=== PATIENT | female | born 1955 | race Two or more races ===

== ENCOUNTER → 2016-12-09 | Outpatient (CLI) | payer OTHER ==
--- NOTE | 2016-12-09 15:53 | MR ---
EXAMINATION TYPE: MR lumbar spine wo con DATE OF EXAM: 12/09/2016 3:19 PM COMPARISON: NONE HISTORY: Reduced Scan parameters, Pt in much pain and moving Best Poss. TECHNIQUE: Multiplanar, multisequence images of the lumbar spine were acquired. T12-L1: Moderate disc desiccation identified. Posterocentral moderate disc bulge effaces the ventral thecal sac. Small herniation difficult to exclude. No central stenosis identified. Mild bilateral for aminal encroachment. L1-L2: Normal disc appearance without desiccation. No herniation, protrusion or disc bulging. No ca nal stenosis is present. Foramina are patent bilaterally. L2-L3: Moderate disc desiccation identified. Posterocentral moderate disc bulge effaces the ventral t hecal sac. Small herniation difficult to exclude. No central stenosis identified. Mild bilateral fora jack encroachment. L3-L4: Moderate disc desiccation identified. Posterocentral moderate disc bulge effaces the ventral t hecal sac. Small herniation difficult to exclude. No central stenosis identified. Mild bilateral fora jack encroachment. L4-L5: Severe disc desiccation identified with vacuum disc. Posterocentral moderate disc bulge efface s the ventral thecal sac. Small herniation difficult to exclude. No central stenosis identified. Mild bilateral foraminal encroachment. L5-S1: Normal disc appearance without desiccation. No herniation, protrusion or disc bulging. No ca nal stenosis is present. Foramina are patent bilaterally. Lumbar segments are intact. No paraspinal masses are identified. Conus medullaris has a normal appe arance. IMPRESSION: 1. Multilevel degenerative disc disease with disc bulging as discussed. Small herniations difficult t o exclude. Bilateral facet joint arthropathy and left foraminal encroachment as discussed.
== END | disposition home or self-care (01) ==
LOC: RADMRIMAIN 14:35
PROVIDERS: ATTEND Family Medicine
DX: M51.26 Other intervertebral disc displacement, lumbar region (principal); M51.36 Other intervertebral disc degeneration, lumbar region; M46.96 Unspecified inflammatory spondylopathy, lumbar region
CPT/HCPCS: 72148

== ENCOUNTER 2017-01-09 18:56 | Inpatient (IN) | payer OTHER ==
[2017-01-09 20:17] LABS: Basophils % (A) 1 %; CHCM 34.6; Eosinophils # (A) 0.1 k/uL (0-0.7); Eosinophils % (A) 2 %; HDW 2.55; Luc # (Auto) 0.14; Luc % (Auto) 3; Lymphocytes # (A) 1.5 k/uL (1.0-4.8); Lymphocytes % (A) 28 %; MCH 31.9 pg (25.0-35.0); MCHC 33.3 g/dL (31.0-37.0); MCV 95.8 fL (80.0-100.0); Mean Platelet Volume 8.1; Monocytes # (A) 0.3 k/uL (0-1.0); Monocytes % (A) 6 %; Neutrophils # (A) 3.4 k/uL (1.3-7.7); Neutrophils % (A) 62 %; RBC 4.69 m/uL (3.80-5.40); RDW 12.4 % (11.5-15.5); WBC 5.5 k/uL (3.8-10.6); WBC (Perox) 5.54
[2017-01-09 20:27] LABS: ALT 20 U/L (9-52); AST 28 U/L (14-36); Alkaline Phosphatase 78 U/L (38-126); Anion Gap 14 mmol/L; Blood Urea Nitrogen 19 mg/dL (7-17); Calcium 9.8 mg/dL (8.4-10.2); Carbon Dioxide 26 mmol/L (22-30); Chloride 104 mmol/L (98-107); Glucose 95 mg/dL (74-99); Non-African American GFR(MDRD) >60 (>60 ml/min/1.73 sqM); Sodium 144 mmol/L (137-145); Total Bilirubin 0.6 mg/dL (0.2-1.3); Total Protein 7.9 g/dL (6.3-8.2)
[2017-01-09] MEDS ORDERED: ASPIRIN 81 MG CHEW PO STA (20:33)
[2017-01-09] MEDS ORDERED: NITROGLYCERIN OINT 1 INCH/GM PACKET TOPICAL STA (20:33)
[2017-01-09 20:43] LABS: Creatine Kinase 60 U/L (30-135)
[2017-01-09 20:54] LABS: Creatine Kinase MB 0.3 ng/mL (0.0-2.4); Troponin I <0.012 ng/mL (0.000-0.034)
--- NOTE | 2017-01-09 20:56 | XR ---
EXAMINATION TYPE: XR chest 2V DATE OF EXAM: 01/09/2017 8:27 PM COMPARISON: 05/08/2014 HISTORY: Chest pain TECHNIQUE: Frontal and lateral views of the chest are obtained. FINDINGS: Heart and mediastinum are normal. Lungs are clear. Diaphragm is normal. There are no hilar masses. There are chest leads. Bony thorax is intact. IMPRESSION: Normal chest. No change.
[2017-01-09] MEDS ORDERED: MORPHINE SULFATE 4 MG/ML SYRINGE IV STA (21:17)
[2017-01-09] MEDS ORDERED: HEPARIN SODIUM,PORCINE 5,000 UNIT/ML 1 ML VIAL IV ONE (21:27)
[2017-01-09] MEDS ORDERED: MORPHINE SULFATE 4 MG/ML SYRINGE IV PRN (21:27)
[2017-01-09] MEDS ORDERED: HEPARIN SODIUM,PORCINE 5,000 UNIT/ML 1 ML VIAL IV PRN (21:27)
[2017-01-09] MEDS ORDERED: NITROGLYCERIN SL TABS 0.4 MG TAB SUBLINGUAL PRN (21:27)
--- NOTE | 2017-01-09 21:27 | ED ---
Chest Pain HPI - General Chief Complaint: Chest Pain Stated Complaint: Chest pain x 2 days Time Seen by Provider: 01/09/17 20:24 Source: patient Mode of arrival: ambulatory Limitations: no limitations - History of Present Illness Initial Comments: This 61-year-old white female presents with a complaint of some chest pain which is described as a pressure to her bilateral chest. It radiates posteriorly, down both arms, and into her neck. She did have some palpitations and shortness of breath. His been intermittent in nature. Onset occurred last evening. She denies any prior similar symptoms. She denies any previous history of cardiac disease or pulmonary disease. Her last stress test was approximately 3 years ago but she's never had a heart catheterization. She denies any history of pulmonary embolism or DVT. She does not have any leg pain or swelling. No other complaints or modifying factors. - Related Data Home Medications Medication Instructions Recorded Confirmed Celecoxib [CeleBREX] 200 mg PO HS 02/24/16 01/09/17 Cholecalciferol [Vitamin D3] 5,000 unit PO DAILY 01/09/17 01/09/17 Cyanocobalamin [Vitamin B-12] 2,500 mcg PO DAILY 01/09/17 01/09/17 Gabapentin [Neurontin] 100 mg PO TID 01/09/17 01/09/17 Levothyroxine Sodium [Synthroid] 88 mcg PO DAILY 01/09/17 01/09/17 Methocarbamol [Robaxin] 500 mg PO TID PRN 01/09/17 01/09/17 Multivitamins, Thera [Multivitamin] 1 tab PO DAILY 01/09/17 01/09/17 tiZANidine HCL [Zanaflex] 4 mg PO Q8H PRN 01/09/17 01/09/17 Allergies Allergy/AdvReac Type Severity Reaction Status Date / Time No Known Allergies Allergy Verified 01/09/17 19:44 Review of Systems ROS Statement: Those systems with pertinent positive or pertinent negative responses have been documented in the HPI. ROS Other: All systems not noted in ROS Statement are negative. Past Medical History Past Medical History: GERD/Reflux, Hearing Disorder / Deafness, Osteoarthritis ( OA), Thyroid Disorder Additional Past Medical History / Comment(s): barretts disease,polyps found during colonoscopy, [place] in right ear History of Any Multi-Drug Resistant Organisms: None Reported Past Surgical History: Bariatric Surgery, Cholecystectomy Additional Past Surgical History / Comment(s): lasik eye surgery and breast implants, lazarus-en-y gastric bypass of 03/03/2014, EGD w/dilatation on 03/28/14 Past Anesthesia/Blood Transfusion Reactions: No Reported Reaction Past Psychological History: No Psychological Hx Reported Smoking Status: Never smoker Past Alcohol Use History: None Reported Past Drug Use History: None Reported General Exam - General Exam Comments Initial Comments: GENERAL: The patient is well nourished and well hydrated. VITAL SIGNS: Heart rate, blood pressure, respiratory rate reviewed as recorded in nurse's notes. EYES: Pupils are round and reactive. Extraocular movements are intact. No conjunctival / lid redness or swelling. ENT: No external evidence of injury, swelling, or ecchymosis. Airway is patent. Throat is clear. NECK: Nontender. No swelling or evidence of injury. No subcutaneous emphysema. Trachea is midline. No thyroid mass. HEART: Regular rate and rhythm. Good peripheral pulses. LUNGS/CHEST: Breath sounds clear and equal bilaterally. No rales, rhonchi, or wheezes. No ecchymosis, subcutaneous emphysema, or tenderness. ABDOMEN: Abdomen soft without tenderness. No palpable masses or organomegaly. No peritoneal signs. No abdominal wall swelling or ecchymosis. EXTREMITIES: No extremity tenderness. Normal muscle tone and function. No thoracolumbar tenderness. NEUROLOGIC: Sensation is grossly intact. Cranial nerve exam reveals face is symmetrical, tongue is midline, speech is clear. SKIN: No abrasions or ecchymosis is noted. No induration or masses noted. PSYCHIATRIC: Alert and oriented. Appropriate behavior and judgment. Limitations: no limitations Course Vital Signs 01/09/17 01/09/17 19:06 20:49 Temperature 99.0 F Pulse Rate 75 62 Respiratory 18 16 Rate Blood Pressure 148/77 159/88 O2 Sat by Pulse 96 98 Oximetry Chest Pain MDM - MDM The patient was seen and examined. All diagnostics were reviewed. The EKG shows a normal sinus rhythm at a rate of 71. There is left ventricular hypertrophy noted. There is T-wave abnormality in leads 3 and aVF. There is some flattened T waves in the lateral leads. The [place] interval is 1:30, QS duration is 84, and QTC intervals 419. The x-ray of the chest does not show any acute abnormalities. The cardiac profile laboratories all essentially within normal limits. She received aspirin as well as Nitropaste and morphine and does not appear to be in any distress on recheck. It is felt as though she benefit from admission to the hospital and further treatment to rule out the possibility of coronary syndrome. She is agreeable. Case is discussed with Dr. Blancas and he is agreeable with admission. Disposition Clinical Impression: Unstable angina pectoris, Chest pain, Hypertension Disposition: ADMITTED IP TO THIS [facility] Condition: Fair Time of Disposition: 21: Decision Date: 01/09/17 Decision Time: 21:27
[2017-01-09] MEDS ORDERED: METHOCARBAMOL 500 MG TAB PO PRN (21:30)
[2017-01-09] MEDS ORDERED: tiZANidine 4 MG TAB PO PRN (21:30)
[2017-01-09] MEDS ORDERED: HEPARIN SODIUM,PORCINE/D5W PMX 25,000 UNIT in DEXTROSE/WATER 1 500ML.BAG IV SCH (21:30)
[2017-01-09] MEDS ORDERED: ONDANSETRON 4 MG/2 ML VIAL IVP STA (22:08)
[2017-01-09] MEDS ORDERED: PANTOPRAZOLE 40 MG/10 ML VIAL IVP STA (22:09)
[2017-01-09] MEDS ORDERED: SODIUM CHLORIDE 0.9% 1,000 ML IV STA (22:22)
[2017-01-09] MEDS ORDERED: RX INFO: IV CONTRAST WAS GIVEN 1 EACH MISC MISCELLANE PRN (22:23)
--- NOTE | 2017-01-09 23:05 | CT ---
EXAMINATION TYPE: CT abdomen pelvis w con DATE OF EXAM: 01/09/2017 10:54 PM COMPARISON: 01/13/2012 HISTORY: Abdominal pain CT DLP: mGycm Automated exposure control for dose reduction was used. TECHNIQUE: Helical acquisition of images was performed from the lung bases through the pelvis. CONTRAST: Omnipaque 100 mL. FINDINGS: There is mild subsegmental atelectasis at the lung bases. There is no pleural effusion. There is a 1 cm cyst in the posterior right lobe of the liver. There are clips from cholecystectomy. Bile ducts ar e not dilated. Spleen pancreas appear normal. There is no adrenal mass. Kidneys show satisfactory con trast opacification. There is no hydronephrosis. There is no sign of a bowel obstruction. I see no in testinal wall thickening. Latter distends smoothly. There is no pelvic mass. There is no free fluid i n the pelvis. Appendix appears normal. There is a mild lumbar dextroscoliosis. There are surgical cli ps apparently from bariatric surgery at the gastric fundus. There are bilateral breast implants. IMPRESSION: MILD SUBSEGMENTAL ATELECTASIS AT THE LUNG BASES. BARIATRIC SURGERY. NO SIGN OF ACUTE ABDOMEN AND PELV IS. NORMAL APPENDIX.
--- NOTE | 2017-01-09 23:08 | CT ---
EXAMINATION TYPE: CT angio chest DATE OF EXAM: 01/09/2017 10:53 PM COMPARISON: NONE HISTORY: Abdominal pain and chest pain CT DLP: mGycm Automated exposure control for dose reduction was used. CONTRAST: Multiple axial sections were obtained from the thoracic inlet to the diaphragm with intravenous contr ast. Contrast was Omnipaque 100 mL. There are 3-D post processed images. FINDINGS: There is mild subsegmental atelectasis at the lung bases. There is no pulmonary consolidation. There is no evidence of a pulmonary mass. I see no filling defects in the pulmonary arteries. There are no hilar masses. There is no mediastina l adenopathy. There is no evidence of thoracic aortic aneurysm or dissection. Heart size is normal. T here is no pericardial effusion. Bony thorax appears intact. There are bilateral breast implants. IMPRESSION: NO EVIDENCE OF PULMONARY EMBOLISM. MILD SUBSEGMENTAL ATELECTASIS AT THE LUNG BASES.
[2017-01-10 00:39] VITALS: BMI 29.1
[2017-01-10] MEDS: METOPROLOL TARTRATE 25 MG TAB PO SCH ×3 (01:03→17:25)
[2017-01-10] MEDS: NITROGLYCERIN OINT 1 INCH/GM PACKET TOPICAL SCH ×4 (01:03→16:35)
[2017-01-10] MEDS: GABAPENTIN 100 MG CAP PO SCH ×4 (01:03→21:13)
[2017-01-10 02:08] LABS: Creatine Kinase 45 U/L (30-135)
[2017-01-10 02:20] LABS: Creatine Kinase MB <0.2 ng/mL (0.0-2.4); Troponin I <0.012 ng/mL (0.000-0.034)
[2017-01-10] MEDS: LEVOTHYROXINE 88 MCG TAB PO SCH (06:08)
[2017-01-10 07:56] LABS: Cholesterol 123 mg/dL (<200); HDL Cholesterol 48 mg/dL (40-60); Triglycerides 83 mg/dL (<150)
[2017-01-10 08:26] LABS: Creatine Kinase 42 U/L (30-135)
[2017-01-10] MEDS: CYANOCOBALAMIN 500 MCG TAB PO SCH (08:27)
[2017-01-10 08:38] LABS: Creatine Kinase MB <0.2 ng/mL (0.0-2.4); Troponin I <0.012 ng/mL (0.000-0.034)
[2017-01-10] MEDS: ASPIRIN 325 MG TAB PO SCH (09:04)
[2017-01-10] MEDS: MULTIVITAMINS, THERA 1 EACH TAB PO SCH (09:08)
[2017-01-10] MEDS: CHOLECALCIFEROL 1,000 UNIT TAB PO SCH (09:08)
--- NOTE | 2017-01-10 09:18 | P.CRDCN ---
History of Present Illness Consult date: 01/10/17 Requesting physician: Garrick Blancas Consult reason: chest pain Chief complaint: Chest pain History of present illness: This is a pleasant 61-year-old female with no documented history of hypertension or diabetes, nonsmoker, positive hyperlipidemia, strong family history of premature coronary artery disease, hypothyroidism, prior bariatric surgery, who presents to the hospital with symptoms of chest pain. According to the patient a couple nights ago, she woke up with severe pressure across the entire chest, through to her back, and down both arms. In the morning, the symptoms of chest discomfort had resolved but patient states throughout that day she was intermittently short of breath when she exerted herself. She also states that at the time of the chest discomfort she was quite diaphoretic and had some mild nausea. Patient denies any prior cardiac history and herself, but states she has a strong family history of premature coronary artery disease. She did have a stress test in 2013 prior to her bariatric surgery which according to her was reported to be normal. EKG on admission here showed a normal sinus rhythm with nonspecific ST-T wave changes in the inferior lateral leads. Repeat EKG showed a sinus bradycardia with no acute changes. EKG performed this morning showed normal sinus rhythm showed a normal sinus rhythm with inferior lateral ST-T wave changes. Laboratory data was reviewed, troponins negative 3, potassium 4.0, BUN 19, creatinine 0.7. Cholesterol 123, LDL 58, HDL 48, triglycerides 83. CBC normal. The pressure on arrival here 148 /77 with a heart rate in the 70s 96% on room air. Blood pressure this morning 112/60. At the time of my examination this morning, patient is currently chest pain-free. She does not currently on IV heparin, patient apparently had a spell of diaphoresis, nausea, and hypotension in the emergency room after being administered Nitropaste and heparin, it was felt that it may be secondary to heparin and this was discontinued. Past Medical History Past Medical History: GERD/Reflux, Hearing Disorder / Deafness, Osteoarthritis ( OA), Thyroid Disorder Additional Past Medical History / Comment(s): barretts disease,polyps found during colonoscopy, [place] in right ear History of Any Multi-Drug Resistant Organisms: None Reported Past Surgical History: Bariatric Surgery, Cholecystectomy Additional Past Surgical History / Comment(s): lasik eye surgery and breast implants, lazarus-en-y gastric bypass of 03/03/2014, EGD w/dilatation on 03/28/14 Past Anesthesia/Blood Transfusion Reactions: No Reported Reaction Past Psychological History: No Psychological Hx Reported Smoking Status: Former smoker Past Alcohol Use History: None Reported Past Drug Use History: None Reported - Past Family History Father Family Medical History: Cancer, Prostate Disorder Additional Family Medical History / Comment(s): TB Mother Family Medical History: Cancer, Diabetes Mellitus Medications and Allergies Home Medications Medication Instructions Recorded Confirmed Type Celecoxib [CeleBREX] 200 mg PO HS 02/24/16 01/09/17 History Cholecalciferol [Vitamin D3] 5,000 unit PO DAILY 01/09/17 01/09/17 History Cyanocobalamin [Vitamin B-12] 2,500 mcg PO DAILY 01/09/17 01/09/17 History Gabapentin [Neurontin] 100 mg PO TID 01/09/17 01/09/17 History Levothyroxine Sodium [Synthroid] 88 mcg PO DAILY 01/09/17 01/09/17 History Methocarbamol [Robaxin] 500 mg PO TID PRN 01/09/17 01/09/17 History Multivitamins, Thera [Multivitamin] 1 tab PO DAILY 01/09/17 01/09/17 History tiZANidine HCL [Zanaflex] 4 mg PO Q8H PRN 01/09/17 01/09/17 History Allergies Allergy/AdvReac Type Severity Reaction Status Date / Time No Known Allergies Allergy Verified 01/09/17 19:44 Physical Exam Vitals: Vital Signs Temp Pulse Pulse Pulse Resp BP BP 01/10/17 04:00 98.5 F 60 16 112/67 01/10/17 01:40 98.1 F 74 74 18 134/83 01/10/17 00:08 97.1 F L 57 L 18 133/73 01/09/17 23:30 66 18 135/69 01/09/17 22:30 48 L 18 118/72 01/09/17 22:25 48 L 18 117/63 01/09/17 22:17 45 L 16 92/57 01/09/17 21:53 97.8 F 64 16 147/88 Pulse Ox 01/10/17 04:00 95 01/10/17 01:40 100 01/10/17 00:08 100 01/09/17 23:30 100 01/09/17 22:30 98 01/09/17 22:25 97 01/09/17 22:17 97 01/09/17 21:53 98 Intake and Output 01/09/17 01/10/17 01/10/17 22:59 06:59 14:59 Intake Total 1000 Balance 1000 Intake: Intake, IV Titration 1000 Amount Sodium Chloride 0.9% 1, 1000 000 ml @ 999 mls/hr IV . Q1H1M STA Rx#:[id number] Other: Voiding Method Toilet Weight 57.7 kg PHYSICAL EXAMINATION: HEENT: Head is atraumatic, normocephalic. Pupils equal, round. Neck is supple. There is no elevated jugular venous pressure. HEART EXAMINATION: Heart S1, S2 normal. No murmur or gallop heard. CHEST EXAMINATION: Lungs are clear to auscultation and precussion. No chest wall tenderness is noted on palpation or with deep breathing. ABDOMEN: Soft, nontender. Bowel sounds are heard. No organomegaly noted. EXTREMITIES: 2+ peripheral pulses with no evidence of peripheral edema and no calf tenderness noted. NEUROLOGIC patient is awake, alert and oriented -3. . Results 01/09/17 19:38 01/09/17 19:38 Cardiac Enzymes 01/10/17 01/10/17 Range/Units 01:20 07:08 CK-MB (CK-2) <0.2 <0.2 (0.0-2.4) ng/mL Troponin I <0.012 <0.012 (0.000-0.034) ng/mL Lipids 01/10/17 Range/Units 07:08 Triglycerides 83 (<150) mg/dL Cholesterol 123 (<200) mg/dL HDL Cholesterol 48 (40-60) mg/dL Current Medications Generic Name Dose Route Start Last Admin Trade Name Freq PRN Reason Stop Dose Admin Aspirin 325 mg 01/10/17 09:00 01/10/17 09:04 Aspirin PO 325 mg DAILY [facility] Administration Cholecalciferol 5,000 unit 01/10/17 09:00 01/10/17 09:08 Vitamin D3 PO Not Given DAILY [facility] Cyanocobalamin 2,500 mcg 01/10/17 07:30 01/10/17 08:27 Vitamin B-12 PO Not Given W/BRKFST [facility] Gabapentin 100 mg 01/09/17 22:00 01/10/17 09:04 Neurontin PO 100 mg TID [facility] Administration Levothyroxine Sodium 88 mcg 01/10/17 06:30 01/10/17 06:08 Synthroid PO 88 mcg 0630 PRUD[facility] Administration Meloxicam 7.5 mg 01/10/17 21:00 Mobic PO HS [facility] Methocarbamol 500 mg 01/09/17 21:30 Robaxin PO TID PRN Pain Metoprolol Tartrate 25 mg 01/09/17 21:30 01/10/17 09:04 Lopressor PO 25 mg BID PRUD[facility] Administration Miscellaneous Information 1 each 01/09/17 22:23 Rx Info: Iv Contrast Was Given MISCELLANE 01/11/17 22:24 DAILY PRN Per Protocol Multivitamins 1 each 01/10/17 09:00 01/10/17 09:08 Theragran PO Not Given DAILY [facility] Nitroglycerin 1 inch 01/10/17 00:00 01/10/17 06:13 Nitro-Bid Oint TOPICAL Not Given Q6HR [facility] Nitroglycerin 0.4 mg 01/09/17 21:27 Nitrostat SUBLINGUAL Q5M PRN Chest Pain Tizanidine HCl 4 mg 01/09/17 21:30 Zanaflex PO Q8H PRN Pain Intake and Output 01/09/17 01/10/17 01/10/17 22:59 06:59 14:59 Intake Total 1000 Balance 1000 Intake: Intake, IV Titration 1000 Amount Sodium Chloride 0.9% 1, 1000 000 ml @ 999 mls/hr IV . Q1H1M STA Rx#:[id number] Other: Voiding Method Toilet Weight 57.7 kg EKG Interpretations (text) EKG shows normal sinus rhythm with inferior lateral ST-T wave changes Assessment and Plan Plan: Assessment and plan #1 symptoms of midsternal chest pressure and heaviness with radiation to the back and down bilateral arms, associated shortness of breath diaphoresis and nausea. Suggestive of unstable angina. EKG shows normal sinus rhythm with inferior lateral ST-T wave changes troponins 3 have been negative. #2 strong family history of premature coronary artery disease #3 history of hyperlipidemia #4 no diabetes, no high blood pressure. #5 prior bariatric surgery #6 hypothyroidism Plan Will obtain an echocardiogram with Doppler study. Patient has been advised that she may need to undergo further testing to rule out underlying coronary artery disease. Further recommendations to follow. DNP note has been reviewed, I agree with a documented findings and plan of care. Patient was seen and examined.
[2017-01-10] MEDS ORDERED: ASPIRIN 325 MG TAB PO STA (10:11)
[2017-01-10] MEDS ORDERED: ATORVASTATIN 80 MG TAB PO STA (10:11)
[2017-01-10] MEDS ORDERED: NITROGLYCERIN SL TABS 0.4 MG TAB SUBLINGUAL PRN (10:11)
[2017-01-10] MEDS ORDERED: SODIUM CHLORIDE 0.9% 1,000 ML in EMPTY BAG 1 BAG IV ONE (10:11)
[2017-01-10] MEDS ORDERED: ALPRAZolam 0.5 MG TAB PO PRN (10:11)
[2017-01-10] MEDS ORDERED: ALPRAZolam 0.25 MG TAB PO PRN (10:11)
--- NOTE | 2017-01-10 10:14 | ECHOF ---
Referral Reason:cp MEASUREMENTS -------- HEIGHT: 147.3 cm WEIGHT: 57.6 kg BP: 112/67 RVIDd: 2.8 cm (< 3.3) IVSd: 1.0 cm (0.6 - 1.1) LVIDd: 3.4 cm (3.9 - 5.3) LVPWd: 1.0 cm (0.6 - 1.1) IVSs: 1.5 cm LVIDs: 2.4 cm LVPWs: 1.5 cm LA Diam: 3.4 cm (2.7 - 3.8) LAESV Index (A-L): 22.50 ml/m Ao Diam: 2.9 cm (2.0 - 3.7) AV Cusp: 2.1 cm (1.5 - 2.6) MV EXCURSION: 12.690 mm (> 18.000) MV EF SLOPE: 83 mm/s (70 - 150) EPSS: 0.4 cm MV E Sidney: 0.96 m/s MV DecT: 206 ms MV A [place]: 0.96 m/s MV E/A Ratio: 1.00 RAP: 5.00 mmHg RVSP: 29.52 mmHg FINDINGS -------- Sinus rhythm. This was a technically good study. The left ventricular size is normal. Left ventricular wall thickness is normal. Overall left ventricular systolic function is normal with, an EF between 60 - 65 %. The right ventricle is normal in size. Normal LA size by volume 22+/-6 ml/m2. The right atrium is normal in size. The aortic valve is trileaflet and appears structurally normal. There is trace mitral regurgitation. Mild tricuspid regurgitation present. Right ventricular systolic pressure is normal at < 35 mmHg. Trace/mild (physiologic) pulmonic regurgitation. The aortic root size is normal. Normal inferior vena cava with normal inspiratory collapse consistent with estimated right atrial pressure of 5 mmHg. There is no pericardial effusion. CONCLUSIONS -------- 1. Sinus rhythm. 2. Mild tricuspid regurgitation present. 3. Right ventricular systolic pressure is normal at < 35 mmHg. 4. Trace/mild (physiologic) pulmonic regurgitation. 5. The aortic root size is normal. 6. Normal inferior vena cava with normal inspiratory collapse consistent with estimated right atrial pressure of 5 mmHg. 7. There is no pericardial effusion. 8. This was a technically good study. 9. The left ventricular size is normal. 10. Left ventricular wall thickness is normal. 11. Overall left ventricular systolic function is normal with, an EF between 60 - 65 %. 12. The right ventricle is normal in size. 13. Normal LA size by volume 22+/-6 ml/m2. 14. The aortic valve is trileaflet and appears structurally normal. 15. There is trace mitral regurgitation. PIPELINE DISPATCHER: Rita Berrios RDCS
--- NOTE | 2017-01-10 13:50 | P.HPIM ---
History of Present Illness H&P Date: 01/10/17 Chief Complaint: Chest pain This is a 61-year-old female. Her primary care physician is Dr. Jon. She has a past mental history for gastroesophageal reflux disease, hearing disorder, chronic back pain with osteoarthritis of the back, hyperlipidemia, hypothyroidism, Quiles's esophagus, gastrojejunal stricture status post balloon dilatation, morbid obesity status post laparoscopic Karissa-en- Y gastric bypass in 2013 with good results. She states that yesterday she had chest pain that was going across her chest and into her back and also went down both arms and cause both arms to be numb and she was not able to lift her arms. The pain gradually went away and she went back to sleep. Later in the day she had palpitations with lightheadedness and feeling tired. The chest pain returned again in the evening and she came into [facility] emergency center for evaluation. Troponin 3 have been negative. Triglycerides 83, cholesterol 123, LDL 58 and HDL 48. Patient was started on heparin drip which was subsequently discontinued and admitted to the selective care unit. She has been seen by cardiology with plan for heart catheterization tomorrow. CTA of the chest showed no evidence of pulmonary embolism. Mild subsegmental atelectasis at the lung bases. CAT scan of the abdomen and pelvis with contrast reveals mild subsegmental atelectasis at the lung bases. Bariatric surgery. No sign of acute abdomen or pelvis. Normal appendix. Echocardiogram reveals EF 60-65% with mild tricuspid regurgitation, trace mitral regurgitation. Review of Systems All systems: negative Constitutional: Reports fatigue, Reports weakness, Denies chills, Denies fever Eyes: denies blurred vision, denies pain Ears, nose, mouth and throat: Denies headache, Denies sore throat Cardiovascular: Reports chest pain, Reports lightheadedness, Denies edema, Denies leg edema, Denies shortness of breath, Denies syncope Respiratory: Denies cough, Denies cough with sputum, Denies dyspnea, Denies excessive sputum, Denies hemoptysis, Denies wheezing Gastrointestinal: Denies abdominal pain, Denies diarrhea, Denies nausea, Denies vomiting Genitourinary: Denies dysuria, Denies hematuria Musculoskeletal: Reports low back pain, Denies myalgias Integumentary: Denies pruritus, Denies rash, Denies wounds Neurological: Reports weakness, Denies numbness Psychiatric: Denies anxiety, Denies depression Endocrine: Reports fatigue, Denies weight change Past Medical History Past Medical History: GERD/Reflux, Hearing Disorder / Deafness, Osteoarthritis ( OA), Thyroid Disorder Additional Past Medical History / Comment(s): barretts disease,polyps found during colonoscopy, CABAZON in right ear, gastrojejunal stricture History of Any Multi-Drug Resistant Organisms: None Reported Past Surgical History: Bariatric Surgery, Cholecystectomy Additional Past Surgical History / Comment(s): lasik eye surgery and breast implants, karissa-en-y gastric bypass of 03/03/2014, EGD w/dilatation on 03/28/14 Past Anesthesia/Blood Transfusion Reactions: No Reported Reaction Past Psychological History: No Psychological Hx Reported Smoking Status: Never smoker Past Alcohol Use History: None Reported Additional Past Alcohol Use History / Comment(s): Patient is a lifelong nonsmoker. She denies any medical marijuana, marijuana, street drug use. She lives at home with her . She is worked as a housewife. Past Drug Use History: None Reported - Past Family History Father Family Medical History: Cancer, Prostate Disorder Additional Family Medical History / Comment(s): Father from prostate cancer with history of TB Mother Family Medical History: Cancer, Diabetes Mellitus Additional Family Medical History / Comment(s): Mother from cancer that was through her whole body at the time of diagnosis. Brother(s) Additional Family Medical History / Comment(s): Patient has a total of 16 brothers and sisters. Daughter(s) Additional Family Medical History / Comment(s): Patient has a total of 5 children with no major medical problems. Medications and Allergies Home Medications Medication Instructions Recorded Confirmed Type Celecoxib [CeleBREX] 200 mg PO HS 02/24/16 01/09/17 History Cholecalciferol [Vitamin D3] 5,000 unit PO DAILY 01/09/17 01/09/17 History Cyanocobalamin [Vitamin B-12] 2,500 mcg PO DAILY 01/09/17 01/09/17 History Gabapentin [Neurontin] 100 mg PO TID 01/09/17 01/09/17 History Levothyroxine Sodium [Synthroid] 88 mcg PO DAILY 01/09/17 01/09/17 History Methocarbamol [Robaxin] 500 mg PO TID PRN 01/09/17 01/09/17 History Multivitamins, Thera [Multivitamin] 1 tab PO DAILY 01/09/17 01/09/17 History tiZANidine HCL [Zanaflex] 4 mg PO Q8H PRN 01/09/17 01/09/17 History Allergies Allergy/AdvReac Type Severity Reaction Status Date / Time No Known Allergies Allergy Verified 01/09/17 19:44 Physical Exam Vitals: Vital Signs Temp Pulse Pulse Pulse Resp BP BP 01/10/17 08:00 97.7 F 60 16 112/77 01/10/17 04:00 98.5 F 60 16 112/67 01/10/17 01:40 98.1 F 74 74 18 134/83 01/10/17 00:08 97.1 F L 57 L 18 133/73 01/09/17 23:30 66 18 135/69 01/09/17 22:30 48 L 18 118/72 01/09/17 22:25 48 L 18 117/63 01/09/17 22:17 45 L 16 92/57 01/09/17 21:53 97.8 F 64 16 147/88 Pulse Ox 01/10/17 08:00 92 L 01/10/17 04:00 95 01/10/17 01:40 100 01/10/17 00:08 100 01/09/17 23:30 100 01/09/17 22:30 98 01/09/17 22:25 97 01/09/17 22:17 97 01/09/17 21:53 98 Intake and Output 01/09/17 01/10/17 01/10/17 22:59 06:59 14:59 Intake Total 1000 Balance 1000 Intake: Intake, IV Titration 1000 Amount Sodium Chloride 0.9% 1, 1000 000 ml @ 999 mls/hr IV . Q1H1M STA Rx#:[id number] Other: Voiding Method Toilet Toilet Weight 57.7 kg Gen: This is a 61-year-old female. She is sitting up in bed and appears to be in no acute distress. HEENT: Head is atraumatic, normocephalic. Pupils equal, round. Sclerae is anicteric. NECK: Supple. No JVD. No lymphadenopathy. No thyromegaly. LUNGS: Clear to auscultation. No wheezes or rhonchi. No intercostal retractions. HEART: Regular rate and rhythm. No murmur. No chest wall tenderness. ABDOMEN: Soft. Bowel sounds are present. No masses. No tenderness. EXTREMITIES: No pedal edema. No calf tenderness. Dorsalis pedis +2 bilaterally. NEUROLOGICAL: Patient is awake, alert and oriented x3. Cranial nerves 2 through 12 are grossly intact. Results CBC & Chem 7: 01/09/17 19:38 01/09/17 19:38 Thrombosis Risk Factor Assmnt - DVT/VTE Prophylaxis DVT/VTE Prophylaxis: Pharmacologic Prophylaxis ordered - Choose All That Apply Each Factor Represents 1 point: Age 41-60 years Thrombosis Risk Factor Assessment Total Risk Factor Score: 1 Thrombosis Risk Factor Assessment Level: Low Risk Assessment and Plan Plan: 1. Chest pain with radiation to the back and down bilateral arms with shortness of breath diaphoresis and nausea and numbness to the arms. EKG with normal sinus rhythm and inferior lateral ST-T wave changes. Troponins have been negative. Cardiology consult is appreciated. Echocardiogram as above. Heart catheterization for tomorrow. Patient has been started on Lopressor 25 mg twice daily, aspirin 325 mg daily, nitro ointment and Nitrostat. 2. Hyperlipidemia. This resolved after weight loss. 3. History of morbid obesity status post Karissa-en-Y gastric bypass, stable. 4. Hypothyroidism. Continue levothyroxine. 5. Gastroesophageal reflux disease. Protonix. 6. Deafness right ear, stable. 7. Osteoarthritis of the spine, stable. Continue Zanaflex, Neurontin, multiple back, Robaxin. 8. Vitamin D and vitamin B12 deficiency. Continue supplement. Patient will be admitted to the hospital for a minimum of 2 night stay. Discharge plan: Return home Impression and plan of care have been directed as dictated by the signing physician. Carolee Emerson nurse practitioner acting as scribe for signing physician. Time with Patient: Greater than 30
[2017-01-10 17:13] LABS: Glucose,Whole Blood 85 mg/dL (75-99)
[2017-01-10] MEDS: MELOXICAM 7.5 MG TAB PO SCH (21:13)
[2017-01-11] MEDS: NITROGLYCERIN OINT 1 INCH/GM PACKET TOPICAL SCH ×4 (00:02→17:26)
[2017-01-11] MEDS: METOPROLOL TARTRATE 25 MG TAB PO SCH ×2 (05:59→20:12)
[2017-01-11] MEDS: LEVOTHYROXINE 88 MCG TAB PO SCH (06:00)
[2017-01-11] MEDS: ASPIRIN 325 MG TAB PO SCH (06:01)
[2017-01-11] MEDS: CHOLECALCIFEROL 1,000 UNIT TAB PO SCH (08:29)
[2017-01-11] MEDS: MULTIVITAMINS, THERA 1 EACH TAB PO SCH (08:29)
[2017-01-11] MEDS: GABAPENTIN 100 MG CAP PO SCH ×2 (08:29→17:57)
[2017-01-11] MEDS: CYANOCOBALAMIN 500 MCG TAB PO SCH (08:29)
[2017-01-11 09:29] LABS: Basophils # (A) 0.1 k/uL (0-0.2); Basophils % (A) 1 %; CH 32.6; CHCM 33.6; Eosinophils # (A) 0.1 k/uL (0-0.7); Eosinophils % (A) 2 %; HDW 2.56; HGB 14.1 gm/dL (11.4-16.0); Luc # (Auto) 0.12; Luc % (Auto) 3; Lymphocytes # (A) 1.1 k/uL (1.0-4.8); Lymphocytes % (A) 25 %; MCH 32.6 pg (25.0-35.0); MCHC 33.5 g/dL (31.0-37.0); MCV 97.5 fL (80.0-100.0); Mean Platelet Volume 9.4; Monocytes # (A) 0.3 k/uL (0-1.0); Monocytes % (A) 7 %; Neutrophils # (A) 2.8 k/uL (1.3-7.7); Neutrophils % (A) 62 %; RBC 4.31 m/uL (3.80-5.40); RDW 12.4 % (11.5-15.5); WBC 4.5 k/uL (3.8-10.6); WBC (Perox) 4.48
[2017-01-11 09:39] LABS: ALT 31 U/L (9-52); AST 27 U/L (14-36); Alkaline Phosphatase 71 U/L (38-126); Anion Gap 10 mmol/L; Blood Urea Nitrogen 16 mg/dL (7-17); Calcium 9.5 mg/dL (8.4-10.2); Carbon Dioxide 29 mmol/L (22-30); Chloride 106 mmol/L (98-107); Glucose 90 mg/dL (74-99); Non-African American GFR(MDRD) >60 (>60 ml/min/1.73 sqM); Potassium 4.6 mmol/L (3.5-5.1); Sodium 145 mmol/L (137-145); Total Bilirubin 0.6 mg/dL (0.2-1.3); Total Protein 6.9 g/dL (6.3-8.2)
[2017-01-11] MEDS ORDERED: ACETAMINOPHEN TAB 500 MG TAB PO PRN (10:17)
[2017-01-11 11:19] VITALS: PULSE 48
[2017-01-11] MEDS ORDERED: MIDAZOLAM 2 MG/2 ML VIAL IVP ONE ×2 (12:39→13:12)
[2017-01-11] MEDS ORDERED: fentaNYL (PF) 50 MCG/ML 2 ML AMP IV ONE ×2 (12:39→13:12)
[2017-01-11] MEDS ORDERED: MIDAZOLAM 2 MG/2 ML VIAL ONE (12:50)
[2017-01-11] MEDS ORDERED: fentaNYL (PF) 50 MCG/ML 2 ML AMP ONE (12:50)
[2017-01-11] MEDS ORDERED: LIDOCAINE 2% INJ 20 MG/ML SQ ONE (13:14)
[2017-01-11] MEDS ORDERED: IOHEXOL 350 MG/ML 100 ML BOTTLE INJ ONE (13:36)
[2017-01-11] MEDS ORDERED: SODIUM CHLORIDE 0.9% 1,000 ML IV ONE (13:37)
--- NOTE | 2017-01-11 13:53 | CC ---
ADDENDUM: DATE OF SERVICE: Moderate sedation was used. Total sedation time was 20 minutes.
--- NOTE | 2017-01-11 13:56 | CC ---
DATE OF SERVICE: Mrs. Mosley was admitted with symptoms suggestive of unstable angina syndrome. Patient has a strong family history of coronary artery disease. Patient had some mild T-wave inversions in the inferolateral leads. In view of that, the patient was advised cardiac catheterization for definitive diagnosis. PROCEDURE: Right groin was prepped and draped in the usual manner and the skin was infiltrated with 2% Xylocaine. The right femoral artery was entered using Seldinger technique. A #6 Bulgarian sheath was placed. Then selective coronary angiogram was then performed in multiple projections and the left ventriculography was performed in 30 degree SCOTT projection. Patient tolerated the procedure well. SELECTIVE CORONARY ANGIOGRAPHY: Left main coronary artery is normal and patent. LAD is a good caliber blood vessel and gives rise to good-sized diagonal branch. LAD and its branches are normal. There is evidence of calcification in the LAD system. The circumflex coronary artery is dominant in distribution and gives rise to the posterior descending artery. The circumflex coronary artery and its branches are normal. The right coronary artery is small and nondominant. Left ventriculography reveals normal left ventricular systolic function. FINAL IMPRESSION: This study reveals mild calcification in the left anterior descending system. There is no evidence of any hemodynamically significant stenosis. Coronary arteries are otherwise angiographically normal. RECOMMENDATION: Medical treatment and aggressive risk modification.
[2017-01-11] MEDS ORDERED: RX INFO: IV CONTRAST WAS GIVEN 1 EACH MISC MISCELLANE PRN (14:26)
--- NOTE | 2017-01-11 15:55 | P.DS ---
Providers Date of admission: 01/09/17 21:27 Expected date of discharge: 01/11/17 Attending physician: Garrick Blancas Primary care physician: Porsha Jon [facility] Course: This is a 61-year-old female. Her primary care physician is Dr. Jon. She has a past mental history for gastroesophageal reflux disease, hearing disorder, chronic back pain with osteoarthritis of the back, hyperlipidemia, hypothyroidism, Quiles's esophagus, gastrojejunal stricture status post balloon dilatation, morbid obesity status post laparoscopic Karissa-en- Y gastric bypass in 2013 with good results. She states that yesterday she had chest pain that was going across her chest and into her back and also went down both arms and cause both arms to be numb and she was not able to lift her arms. The pain gradually went away and she went back to sleep. Later in the day she had palpitations with lightheadedness and feeling tired. The chest pain returned again in the evening and she came into [facility] emergency center for evaluation. Troponin 3 have been negative. Triglycerides 83, cholesterol 123, LDL 58 and HDL 48. Patient was started on heparin drip which was subsequently discontinued and admitted to the selective care unit. She has been seen by cardiology with plan for heart catheterization tomorrow. CTA of the chest showed no evidence of pulmonary embolism. Mild subsegmental atelectasis at the lung bases. CAT scan of the abdomen and pelvis with contrast reveals mild subsegmental atelectasis at the lung bases. Bariatric surgery. No sign of acute abdomen or pelvis. Normal appendix. Echocardiogram reveals EF 60-65% with mild tricuspid regurgitation, trace mitral regurgitation. 3/: Patient underwent heart catheterization with Dr. ROBERT Cabral on January 11. There was no hemodynamically significant stenosis and medical management was recommended. Patient no further issues with chest pain and will be discharged home today in stable condition. Discharge diagnoses: 1. Chest pain 2. Hyperlipidemia. This resolved after weight loss. 3. History of morbid obesity status post Karissa-en-Y gastric bypass, stable. 4. Hypothyroidism. Continue levothyroxine. 5. Gastroesophageal reflux disease. 6. Deafness right ear, stable. 7. Osteoarthritis of the spine, stable. 8. Vitamin D and vitamin B12 deficiency. Discharge plan: Return home Impression and plan of care have been directed as dictated by the signing physician. Carolee Emerson nurse practitioner acting as scribe for signing physician. Patient Condition at Discharge: Good Plan - Discharge Summary New Discharge Prescriptions: Atorvastatin [Lipitor] 80 mg PO DAILY #30 tab Metoprolol Tartrate [Lopressor] 25 mg PO BID #60 tab Nitroglycerin Sl Tabs [Nitrostat] 0.4 mg SUBLINGUAL Q5M PRN #25 tab PRN Reason: Chest Pain Discharge Medication List Celecoxib [CeleBREX] 200 mg PO HS 02/24/16 [History] Cholecalciferol [Vitamin D3] 5,000 unit PO DAILY 01/09/17 [History] Cyanocobalamin [Vitamin B-12] 2,500 mcg PO DAILY 01/09/17 [History] Gabapentin [Neurontin] 100 mg PO TID 01/09/17 [History] Levothyroxine Sodium [Synthroid] 88 mcg PO DAILY 01/09/17 [History] Methocarbamol [Robaxin] 500 mg PO TID PRN 01/09/17 [History] Multivitamins, Thera [Multivitamin] 1 tab PO DAILY 01/09/17 [History] tiZANidine HCL [Zanaflex] 4 mg PO Q8H PRN 01/09/17 [History] Atorvastatin [Lipitor] 80 mg PO DAILY #30 tab 01/11/17 [Rx] Metoprolol Tartrate [Lopressor] 25 mg PO BID #60 tab 01/11/17 [Rx] Nitroglycerin Sl Tabs [Nitrostat] 0.4 mg SUBLINGUAL Q5M PRN #25 tab 01/11/17 [Rx ] Follow up Appointment(s)/Referral(s): Porsha Jon MD [Primary Care Provider] - 1 Week Rachelle Cabral MD [STAFF PHYSICIAN] - 2 Weeks Discharge Disposition: HOME SELF-CARE
[2017-01-11 20:03] VITALS: BP 128/63; RESP 16; TEMP 97
[2017-01-11] MEDS: MELOXICAM 7.5 MG TAB PO SCH (20:12)
[2017-01-12] MEDS ORDERED: ATORVASTATIN 80 MG TAB PO SCH (09:00)
== END 2017-01-11 20:37 | disposition home or self-care (01) | DRG 287 ==
LOC: EC 18:56 → UNDOADMOB 21:27 → 6SEL 21:27 → 3SUR 21:27
PROVIDERS: ADMIT Internal Medicine Geriatric Medicine; ATTEND Internal Medicine Geriatric Medicine
PROC: B2151ZZ Fluoroscopy of Left Heart using Low Osmolar Contrast (ICD-10-PCS; 2017-01-11)
PROC: B2111ZZ Fluoroscopy of Multiple Coronary Arteries using Low Osmolar Contrast (ICD-10-PCS; principal; 2017-01-11 12:30)
DX: R07.9 Chest pain, unspecified (principal); I07.1 Rheumatic tricuspid insufficiency; I10 Essential (primary) hypertension; J98.11 Atelectasis; E53.8 Deficiency of other specified B group vitamins; E55.9 Vitamin D deficiency, unspecified; E03.9 Hypothyroidism, unspecified; K21.9 Gastro-esophageal reflux disease without esophagitis; H91.91 Unspecified hearing loss, right ear; M47.9 Spondylosis, unspecified; G89.29 Other chronic pain; M19.90 Unspecified osteoarthritis, unspecified site; K22.70 Barrett's esophagus without dysplasia; Z98.84 Bariatric surgery status; Z82.49 Family history of ischemic heart disease and other diseases of the circulatory system; Z98.82 Breast implant status; Z87.891 Personal history of nicotine dependence; Z79.899 Other long term (current) drug therapy
CPT/HCPCS: 36415; 71020; 71275; 74177; 80053; 80061; 82550; 82553; 83735; 84484; 85025; 93005; 93306; 93458; 96365; 96375; 96376; 99285

== ENCOUNTER → 2017-03-08 | Outpatient (CLI) | payer OTHER ==
[2017-03-08 15:29] VITALS: BP 143/76; PULSE 52; TEMP 98; BMI 31.9
[2017-03-08 16:41] LABS: CH 33.1; CHCM 33.2; HDW 2.21; HGB 14.1 gm/dL (11.4-16.0); MCH 32.9 pg (25.0-35.0); MCHC 32.8 g/dL (31.0-37.0); MCV 100.4 fL (80.0-100.0); Macrocytosis Slight; Mean Platelet Volume 8.3; RBC 4.28 m/uL (3.80-5.40); RDW 13.2 % (11.5-15.5); WBC 8.3 k/uL (3.8-10.6)
[2017-03-08 16:52] LABS: ALT 51 U/L (9-52); AST 32 U/L (14-36); Alkaline Phosphatase 102 U/L (38-126); Anion Gap 7 mmol/L; Blood Urea Nitrogen 25 mg/dL (7-17); Calcium 8.8 mg/dL (8.4-10.2); Carbon Dioxide 29 mmol/L (22-30); Chloride 106 mmol/L (98-107); Cholesterol 106 mg/dL (<200); Glucose 103 mg/dL (74-99); HDL Cholesterol 64 mg/dL (40-60); Iron 100 ug/dL (37-170); Magnesium 2.3 mg/dL (1.6-2.3); Non-African American GFR(MDRD) >60 (>60 ml/min/1.73 sqM); Sodium 142 mmol/L (137-145); Total Bilirubin 0.6 mg/dL (0.2-1.3); Triglycerides 76 mg/dL (<150)
[2017-03-08 16:53] LABS: Partial Thromboplastin Time 23.9 sec (22.0-30.0); Prothrombin Time 9.8 sec (9.0-12.0)
[2017-03-08 17:03] LABS: % Iron Saturation 29.6 % (20-50); Prealbumin 25 mg/dL (18-36); Total Iron Binding Capacity 338 ug/dL (265-497)
[2017-03-08 17:57] LABS: Vitamin B12 >1000 pg/mL (239-931)
[2017-03-08 19:29] LABS: Hemoglobin A1C 5.5 % (4.2-6.1)
[2017-03-11 10:50] LABS: Selenium 152 mcg/L (63-160)
--- NOTE | 2017-04-30 10:57 | CONS ---
DATE OF CONSULTATION: 03/08/2017 CHIEF COMPLAINT: History of gastric bypass. HISTORY OF PRESENT ILLNESS: Leonela Mosley is a 61-year-old female who is status post Karissa-en-Y gastric bypass from March 2014. She has been fairly lost to follow-up since her last evaluation in April 2016. She has been taking Celebrex and steroids consistently. She also reports new numbness in her arms. She now presents for further follow-up. At her height of 4 feet 8 inches, her ideal body weight is 111 pounds. Her highest weight was 174 pounds. Today she comes in weighing 127 pounds. She has maintained 47 pound weight loss. Percent excess weight loss is 74%. Body mass index is reduced from 39 down to 28.6. Total BMI point reduced 10.4. She is only 16 pounds overweight. PAST MEDICAL HISTORY: 1. Morbid obesity. 2. Hypothyroidism. 3. Osteoarthritis of the lower back, now resolved. 4. Iron deficiency anemia. PAST SURGICAL HISTORY: 1. Karissa-en-Y gastric bypass. 2. Cholecystectomy. 3. LASIK eye surgery. 4. History of breast implants. 5. History of upper endoscopy with balloon dilatation. 6. Colonoscopy. MEDICATIONS: 1. Tizanidine 2. Synthroid. 3. Iron. 4. Celebrex. ALLERGIES: DENIES. SOCIAL HISTORY: No active tobacco use. She is . FAMILY HISTORY: Pertinent for morbid obesity. REVIEW OF SYSTEMS: GASTROINTESTINAL: She reports intermittent epigastric discomfort. No reports of dumping syndrome. She reports her gastroesophageal reflux disease is completely resolved. CONSTITUTIONAL: At her height of 4 feet 8 inches, her ideal body weight is 111 pounds. Her highest weight was 174 pounds. Today she comes in weighing 127 pounds. She has maintained 47 pound weight loss. Percent excess weight loss is 74%. Body mass index is reduced from 39 down to 28.6. Total BMI point reduced 10.4. She is only 16 pounds overweight. NEURO: Has increased forgetfulness. No reports of stroke or seizure disorder. She reports new numbness along the arm. As a result, she is taking steroids and Celebrex. MUSCULOSKELETAL: Improved lower back pain including osteoarthritis. ENDOCRINE: Hypothyroidism is stable. No reports of diabetes. RESPIRATORY: Resolution of obstructive sleep apnea. HEENT: No troubles with vision, hearing or dysphagia. CARDIOVASCULAR: No reports of recent chest pain, palpitations. No reports of a heart attack. PSYCH: No depression or suicidal ideation. HEMATOLOGIC: No personal history of DVTs. PHYSICAL EXAM: VITAL SIGNS: 98.0, 52, 16, 143/76, 4-foot 8, 127 pounds. Body mass index of 28.6. ABDOMEN: Soft. No palpable incisional hernias. GENERAL: Well-developed female in no acute distress. the pannus extending over the pubis by 3 cm. HEENT: No scleral icterus. Extraocular movements grossly intact. Moist buccal mucosa. NECK: Supple without lymphadenopathy. CHEST: Non-labored respirations with equal bilateral excursions. CARDIOVASCULAR: Regular rate and rhythm. NEURO: No focal or lateralizing signs. Cranial nerves II through XII grossly within normal limits. PSYCH: Appropriate affect. Alert and oriented to person, place and time. LABS: Bariatric metabolic panel was reviewed with hemoglobin normal at 14.1. White count was normal. MCV was elevated 100.4. BUN was elevated at 25. Glucose elevated at 103. Hemoglobin A1c is normal at 5.5. Cholesterol was elevated at 64. Cholesterol was normal at 106. Vitamin B12 was normal at over 1000. TSH was suppressed at 0.218. ASSESSMENT: 1. Morbid obesity due to excess calories, now resolved. 2. Body mass index reduced from 39.1 to 28.6. 3. Status post Karissa-en-Y gastric bypass. 4. Increased fatigue. 5. Increased forgetfulness. 6. Vitamin B12 deficiency. 7. Zinc deficiency. 8. Elevated selenium serum level. 9. Gastroesophageal reflux disease, resolved. 10. Suppressed TSH consistent with iatrogenic hyperthyroidism. 11. Osteoarthritis of the lower back, resolved. 12. Hypertension without cardiomyopathy, resolved. 13. Intermittent numbness of extremities. 14. History of steroid use. 15. History of antiinflammatory use. PLAN: 1. On review of her medications she is taking Celebrex which is contraindicated with her history of gastric bypass. She is at risk for developing gastrojejunal ulcers versus risk of perforation. She was asked to use alternative for pain medication. 2. Her Synthroid level may be too high as her TSH level is severely suppressed. Recommend lowering her dose. 3. She reports epigastric abdominal pain. Recommend upper endoscopy to evaluate for ulcers and potential stricture. [facility]ERS[facility]ho[facility]
== END | disposition home or self-care (01) ==
LOC: BARWHC3 14:04
PROVIDERS: ATTEND Surgery Plastic and Reconstructive Surgery
DX: Z48.815 Encounter for surgical aftercare following surgery on the digestive system (principal); Z71.3 Dietary counseling and surveillance; E66.01 Morbid (severe) obesity due to excess calories; E21.1 Secondary hyperparathyroidism, not elsewhere classified; E89.1 Postprocedural hypoinsulinemia; D50.8 Other iron deficiency anemias; Z98.84 Bariatric surgery status; E44.0 Moderate protein-calorie malnutrition; E55.9 Vitamin D deficiency, unspecified; K74.1 Hepatic sclerosis; N19 Unspecified kidney failure; K50.90 Crohn's disease, unspecified, without complications; Z68.20 Body mass index [BMI] 20.0-20.9, adult
CPT/HCPCS: 80053; 80061; 82306; 82525; 82607; 82728; 82746; 83036; 83540; 83550; 83735; 83970; 84100; 84134; 84255; 84425; 84443; 84590; 84630; 85027; 85610; 85730; 97803; 99211

== ENCOUNTER 2017-06-02 00:01 | Inpatient (IN) | payer OTHER ==
[2017-06-02] MEDS ORDERED: RX INFO: IV CONTRAST WAS GIVEN 1 EACH MISC MISCELLANE PRN (00:09)
[2017-06-02] MEDS ORDERED: SODIUM CHLORIDE 0.9% 1,000 ML IV ONE (00:09)
[2017-06-02] MEDS ORDERED: IOHEXOL 350 MG/ML 25 ML BOTTLE (ORAL USE) PO PRN (00:09)
[2017-06-02] MEDS ORDERED: ONDANSETRON 4 MG/2 ML VIAL IVP STA ×2 (00:16→05:44)
--- NOTE | 2017-06-02 00:18 | ED ---
Abdominal Pain HPI <Liu Michelle - Last Filed: 06/02/17 03:19> - General Source: patient, RN notes reviewed Mode of arrival: EMS Limitations: no limitations <Shaylee Cain - Last Filed: 06/02/17 04:06> - General Chief Complaint: Abdominal Pain Stated Complaint: ABD pain Time Seen by Provider: 06/02/17 00:08 - History of Present Illness Initial Comments: Patient is a 61-year-old female since emergency room for evaluation of abdominal pain. Patient states pain began around 12:00 in the afternoon. Patient's pain has been worsening throughout the day. Patient states any nausea and vomiting. Patient states she had a Lazarus-en-Y procedure [address] Lobato. Patient states about 2 months ago she was having worsening pain. Patient states she ended up having surgery on her stomach to correct her Lazarus-en -Y surgery. Patient states the pain today feels exactly like before when she needed surgery. Patient states having 10 out of 10 pain. Patient states she is very nauseous. Patient denies cancer patient diarrhea. Patient denies any other history of abdominal surgeries. Patient denies fevers or chills. Patient denies headache or dizziness. Patient denies chest pain or shortness of breath. (Shaylee Cain) - Related Data Home Medications Medication Instructions Recorded Confirmed Celecoxib [CeleBREX] 200 mg PO HS 02/24/16 06/02/17 Cholecalciferol [Vitamin D3] 5,000 unit PO DAILY 01/09/17 06/02/17 Cyanocobalamin [Vitamin B-12] 2,500 mcg PO DAILY 01/09/17 06/02/17 Gabapentin [Neurontin] 100 mg PO TID 01/09/17 06/02/17 Levothyroxine Sodium [Synthroid] 88 mcg PO DAILY 01/09/17 06/02/17 Methocarbamol [Robaxin] 500 mg PO TID PRN 01/09/17 06/02/17 Multivitamins, Thera [Multivitamin] 1 tab PO DAILY 01/09/17 06/02/17 tiZANidine HCL [Zanaflex] 4 mg PO Q8H PRN 01/09/17 06/02/17 Tapentadol HCl [Nucynta] 75 mg PO Q4HR 06/02/17 06/02/17 Previous Rx's Medication Instructions Recorded Atorvastatin [Lipitor] 80 mg PO DAILY #30 tab 01/11/17 Metoprolol Tartrate [Lopressor] 25 mg PO BID #60 tab 01/11/17 Nitroglycerin Sl Tabs [Nitrostat] 0.4 mg SUBLINGUAL Q5M PRN #25 tab 01/11/17 Allergies Allergy/AdvReac Type Severity Reaction Status Date / Time morphine AdvReac Rapid Verified 06/02/17 00:09 Heart Rate Review of Systems ROS Other: All systems not noted in ROS Statement are negative. <Liu Michelle - Last Filed: 06/02/17 03:19> ROS Other: All systems not noted in ROS Statement are negative. <Shaylee Cain - Last Filed: 06/02/17 04:06> ROS Statement: Those systems with pertinent positive or pertinent negative responses have been documented in the HPI. Past Medical History Past Medical History: GERD/Reflux, Hearing Disorder / Deafness, Osteoarthritis ( OA), Thyroid Disorder Additional Past Medical History / Comment(s): barretts disease,polyps found during colonoscopy, [place] in right ear, gastrojejunal stricture History of Any Multi-Drug Resistant Organisms: None Reported Past Surgical History: Bariatric Surgery, Cholecystectomy Additional Past Surgical History / Comment(s): lasik eye surgery and breast implants, lazarus-en-y gastric bypass of 03/03/2014, EGD w/dilatation on 03/28/14 Past Anesthesia/Blood Transfusion Reactions: No Reported Reaction Past Psychological History: No Psychological Hx Reported Smoking Status: Never smoker Past Alcohol Use History: None Reported Past Drug Use History: None Reported - Past Family History Father Family Medical History: Cancer, Prostate Disorder Additional Family Medical History / Comment(s): Father from prostate cancer with history of TB Mother Family Medical History: Cancer, Diabetes Mellitus Additional Family Medical History / Comment(s): Mother from cancer that was through her whole body at the time of diagnosis. Brother(s) Additional Family Medical History / Comment(s): Patient has a total of 16 brothers and sisters. Daughter(s) Additional Family Medical History / Comment(s): Patient has a total of 5 children with no major medical problems. <Shaylee Cain - Last Filed: 06/02/17 04:06> General Exam <Liu Michelle - Last Filed: 06/02/17 03:19> Limitations: no limitations General appearance: alert, in no apparent distress Head exam: Present: atraumatic, normocephalic, normal inspection Eye exam: Present: normal appearance ENT exam: Present: normal exam Neck exam: Present: normal inspection Respiratory exam: Present: normal lung sounds bilaterally. Absent: respiratory distress Cardiovascular Exam: Present: regular rate, normal rhythm, normal heart sounds GI/Abdominal exam: Present: soft, tenderness (mid epigastric, right lower quadrant), normal bowel sounds. Absent: distended, guarding, rebound, rigid Extremities exam: Present: normal inspection Back exam: Present: normal inspection Neurological exam: Present: alert, oriented X3, CN II-XII intact Psychiatric exam: Present: normal affect, normal mood Skin exam: Present: warm, dry, intact, normal color. Absent: rash <Shaylee Cain - Last Filed: 06/02/17 04:06> - General Exam Comments Initial Comments: laying in exam room, no acute distress. (Shaylee Cain) Medical Decision Making - Lab Data Result diagrams: 06/02/17 00:54 06/02/17 00:54 - Radiology Data Radiology results: report reviewed (Computed tomography scan of the abdomen pelvis shows evidence of small bowel obstruction with transition in the mid lower abdomen likely due to adhesions or bowel anastomosis.) <Liu Michelle - Last Filed: 06/02/17 03:19> - Lab Data Result diagrams: 06/02/17 00:54 06/02/17 00:54 <Shaylee Cain - Last Filed: 06/02/17 04:06> - Medical Decision Making Patient reevaluated by myself, Dr. Michelle. Patient resting in bed. Patient complains of mild nausea. Discomfort is tolerable at this time. Patient was updated on results and plan. Case discussed with Dr. Juarez, who will admit for Dr. Lobato. No NG tube. Abdominal exam with mild discomfort in the epigastric and umbilical region. (Liu Michelle) - Lab Data Lab Results 06/02/17 06/02/17 06/02/17 Range/Units 00:54 00:54 00:54 WBC 6.1 (3.8-10.6) k/uL RBC 4.26 (3.80-5.40) m/uL Hgb 14.5 (11.4-16.0) gm/dL Hct 42.7 (34.0-46.0) % MCV 100.2 H (80.0-100.0) fL MCH 34.1 (25.0-35.0) pg MCHC 34.0 (31.0-37.0) g/dL RDW 13.4 (11.5-15.5) % Plt Count 151 (150-450) k/uL Neutrophils % 72 % Lymphocytes % 18 % Monocytes % 7 % Eosinophils % 2 % Basophils % 0 % Neutrophils # 4.4 (1.3-7.7) k/uL Lymphocytes # 1.1 (1.0-4.8) k/uL Monocytes # 0.4 (0-1.0) k/uL Eosinophils # 0.1 (0-0.7) k/uL Basophils # 0.0 (0-0.2) k/uL Sodium 142 (137-145) mmol/L Potassium 4.0 (3.5-5.1) mmol/L Chloride 109 H (98-107) mmol/L Carbon Dioxide 23 (22-30) mmol/L Anion Gap 10 mmol/L BUN 15 (7-17) mg/dL Creatinine 0.60 (0.52-1.04) mg/dL Est GFR (MDRD) Af Amer >60 (>60 ml/min/1.73 sqM) Est GFR (MDRD) Non-Af >60 (>60 ml/min/1.73 sqM) Glucose 93 (74-99) mg/dL Plasma Lactic Acid Baldev 0.9 (0.7-2.0) mmol/L Calcium 8.8 (8.4-10.2) mg/dL Total Bilirubin 1.3 (0.2-1.3) mg/dL AST 31 (14-36) U/L ALT 44 (9-52) U/L Alkaline Phosphatase 70 (38-126) U/L Total Protein 6.6 (6.3-8.2) g/dL Albumin 4.1 (3.5-5.0) g/dL Amylase 89 (30-110) U/L Lipase 248 (23-300) U/L Urine Color Urine Appearance (Clear) Urine pH (5.0-8.0) Ur Specific [place] (1.001-1.035) Urine Protein (Negative) Urine Glucose (UA) (Negative) Urine Ketones (Negative) Urine Blood (Negative) Urine Nitrite (Negative) Urine Bilirubin (Negative) Urine Urobilinogen (<2.0) mg/dL Ur Leukocyte Esterase (Negative) 06/02/17 Range/Units 03:05 WBC (3.8-10.6) k/uL RBC (3.80-5.40) m/uL Hgb (11.4-16.0) gm/dL Hct (34.0-46.0) % MCV (80.0-100.0) fL MCH (25.0-35.0) pg MCHC (31.0-37.0) g/dL RDW (11.5-15.5) % Plt Count (150-450) k/uL Neutrophils % % Lymphocytes % % Monocytes % % Eosinophils % % Basophils % % Neutrophils # (1.3-7.7) k/uL Lymphocytes # (1.0-4.8) k/uL Monocytes # (0-1.0) k/uL Eosinophils # (0-0.7) k/uL Basophils # (0-0.2) k/uL Sodium (137-145) mmol/L Potassium (3.5-5.1) mmol/L Chloride (98-107) mmol/L Carbon Dioxide (22-30) mmol/L Anion Gap mmol/L BUN (7-17) mg/dL Creatinine (0.52-1.04) mg/dL Est GFR (MDRD) Af Amer (>60 ml/min/1.73 sqM) Est GFR (MDRD) Non-Af (>60 ml/min/1.73 sqM) Glucose (74-99) mg/dL Plasma Lactic Acid Baldev (0.7-2.0) mmol/L Calcium (8.4-10.2) mg/dL Total Bilirubin (0.2-1.3) mg/dL AST (14-36) U/L ALT (9-52) U/L Alkaline Phosphatase (38-126) U/L Total Protein (6.3-8.2) g/dL Albumin (3.5-5.0) g/dL Amylase (30-110) U/L Lipase (23-300) U/L Urine Color Yellow Urine Appearance Clear (Clear) Urine pH 6.5 (5.0-8.0) Ur Specific [place] 1.050 H (1.001-1.035) Urine Protein Negative (Negative) Urine Glucose (UA) Negative (Negative) Urine Ketones 2+ H (Negative) Urine Blood Negative (Negative) Urine Nitrite Negative (Negative) Urine Bilirubin Negative (Negative) Urine Urobilinogen <2.0 (<2.0) mg/dL Ur Leukocyte Esterase Negative (Negative) Disposition Decision Time: 03:21 <Liu Michelle - Last Filed: 06/02/17 03:19> <Shaylee Cain - Last Filed: 06/02/17 04:06> Clinical Impression: Small bowel obstruction Disposition: ADMITTED IP TO THIS [facility] Referrals: Porsha Jon MD [Primary Care Provider] - 1-2 days
[2017-06-02 01:05] LABS: Basophils % (A) 0 %; CH 34.1; CHCM 34.2; Eosinophils # (A) 0.1 k/uL (0-0.7); Eosinophils % (A) 2 %; HCT 42.7 % (34.0-46.0); HDW 2.38; HGB 14.5 gm/dL (11.4-16.0); Luc # (Auto) 0.07; Luc % (Auto) 1; Lymphocytes # (A) 1.1 k/uL (1.0-4.8); Lymphocytes % (A) 18 %; MCH 34.1 pg (25.0-35.0); MCV 100.2 fL (80.0-100.0); Mean Platelet Volume 8.3; Monocytes # (A) 0.4 k/uL (0-1.0); Monocytes % (A) 7 %; Neutrophils # (A) 4.4 k/uL (1.3-7.7); Neutrophils % (A) 72 %; RBC 4.26 m/uL (3.80-5.40); RDW 13.4 % (11.5-15.5); WBC 6.1 k/uL (3.8-10.6); WBC (Perox) 6.01
[2017-06-02 01:17] LABS: ALT 44 U/L (9-52); AST 31 U/L (14-36); Alkaline Phosphatase 70 U/L (38-126); Amylase 89 U/L (30-110); Anion Gap 10 mmol/L; Blood Urea Nitrogen 15 mg/dL (7-17); Calcium 8.8 mg/dL (8.4-10.2); Carbon Dioxide 23 mmol/L (22-30); Chloride 109 mmol/L (98-107); Glucose 93 mg/dL (74-99); Non-African American GFR(MDRD) >60 (>60 ml/min/1.73 sqM); Sodium 142 mmol/L (137-145); Total Bilirubin 1.3 mg/dL (0.2-1.3); Total Protein 6.6 g/dL (6.3-8.2)
[2017-06-02] MEDS ORDERED: HYDROmorphone 1 MG/ML 1 ML SYRINGE IVP STA ×2 (01:35→02:14)
--- NOTE | 2017-06-02 03:04 | CT ---
EXAM: CT Abdomen and Pelvis With Intravenous Contrast CLINICAL HISTORY: Reason: Pain TECHNIQUE: Axial computed tomography images of the abdomen and pelvis with intravenous contrast. CTDI is 12.1 mGy and DLP is 466.2 mGy-cm. This CT exam was performed using one or more of the following dose reduction techniques: automated exposure control, adjustment of the mA and/or kV according to patient size, and/or use of iterative reconstruction technique. Coronal and sagittal reconstructions are performed COMPARISON: 01/09/17 FINDINGS: Lower thorax: Bilateral breast implants are seen. Dependent atelectasis. ABDOMEN: Liver: Unremarkable. No mass. Gallbladder and bile ducts: Status post cholecystectomy. No ductal dilation. Pancreas: Unremarkable. No mass. No ductal dilation. Spleen: Unremarkable. No splenomegaly. Adrenals: Unremarkable. No mass. Kidneys and ureters: Unremarkable. No solid mass. No hydronephrosis. Stomach and bowel: Surgical sutures seen around the gastric greater curvature. There is a small bowel obstruction transitioning at the mid lower abdomen, evidence by short segment of dilated small bowel with anastomosis suture containing stool. No mucosal thickening. Normal appendix PELVIS: Bladder: Unremarkable. No mass. Reproductive: Unremarkable as visualized. ABDOMEN and PELVIS: Intraperitoneal space: Unremarkable. No free air. No significant fluid collection. Bones/joints: No acute fracture. No dislocation. Soft tissues: Unremarkable. Vasculature: Unremarkable. No abdominal aortic aneurysm. Lymph nodes: Unremarkable. No enlarged lymph nodes. IMPRESSION: Evidence of small bowel obstruction transitioning at the mid lower abdomen likely due to adhesions and/or bowel anastomosis. [employer] 06/02/17 03:12 Verify Receipt Verified receipt with NIKUNJ Michelle on 06/02 03:11 (-04:00)
[2017-06-02] MEDS ORDERED: ONDANSETRON 4 MG/2 ML VIAL IVP PRN (03:21)
[2017-06-02] MEDS ORDERED: NALOXONE 0.4 MG/ML 1 ML VIAL IV PRN (03:21)
[2017-06-02 03:23] LABS: Appearance,Urine Clear (Clear); Bilirubin,Urine Negative (Negative); Glucose,Urine (UA) Negative (Negative); Ketones,Urine 2+ (Negative); Leukocyte Esterase,Urine Negative (Negative); Nitrite,Urine Negative (Negative); PH, Urine 6.5 (5.0-8.0); Protein,Urine Negative (Negative); UA Billing (MACRO vs. MICRO) CHEM; Urobilinogen,Urine <2.0 mg/dL (<2.0)
[2017-06-02] MEDS: HYDROmorphone 1 MG/ML 1 ML SYRINGE IV PRN ×4 (05:09→20:41)
[2017-06-02 05:30] VITALS: BMI 28.2
[2017-06-02] MEDS: SODIUM CHLORIDE 0.9% 1,000 ML IV SCH ×2 (05:36→15:30)
[2017-06-02] MEDS: ONDANSETRON 4 MG/2 ML VIAL IVP PRN ×2 (08:16→15:29)
[2017-06-02] MEDS: ESOMEPRAZOLE 20 MG in SODIUM CHLORIDE 0.9% 50 ML IVPB SCH (08:16)
[2017-06-02] MEDS ORDERED: METOCLOPRAMIDE 5 MG/ML 2 ML VIAL IVP STA (10:58)
[2017-06-02] MEDS ORDERED: hydrOXYzine HCL 50 MG/ML 1 ML VIAL IM STA (16:22)
--- NOTE | 2017-06-02 16:29 | P.CONS ---
History of Present Illness - Reason for Consult Consult date: 06/02/17 Medical management Requesting physician: Lara Corea - Chief Complaint Abdominal pain - History of Present Illness his is a 61-year-old female. Her primary care physician is Dr. Jon. She has a past mental history for gastroesophageal reflux disease, hearing disorder, chronic back pain with osteoarthritis of the back, hyperlipidemia, hypothyroidism, Quiles's esophagus, gastrojejunal stricture status post balloon dilatation, morbid obesity status post laparoscopic Lazarus-en- Y gastric bypass in 2013 with good results. She recently had an open exploratory laparotomy secondary to lysis of adhesions as well as repair of one of the intestinal conduits from her Lazarus-en-Y gastric bypass surgery this was performed 2 months ago in [facility], this was emergently done, she stayed in the hospital for approximately 4 weeks secondary to peritonitis. She was subsequently sent home without any complications thereafter, recently she complained of generlized abdominal pain since 12 noon and this was followed followed by by bilous vomiting, no fecaloid material, pain persisted nausea persisted patient was subsequently seen in the emergency room and was found to have small bowel obstruction with transition point in the mid lower abdomen based on computed tomography scan finding, appendix is normal , patient was admitted under service of Dr. Corea with medical consultation to our service for medical management Past Medical History Past Medical History: GERD/Reflux, Hearing Disorder / Deafness, Osteoarthritis ( OA), Thyroid Disorder Additional Past Medical History / Comment(s): barretts disease,polyps found during colonoscopy, [place] left ear is worse , gastrojejunal stricture History of Any Multi-Drug Resistant Organisms: None Reported Past Surgical History: Bariatric Surgery, Cholecystectomy Additional Past Surgical History / Comment(s): lasik eye surgery and breast implants, lazarus-en-y gastric bypass of 03/03/2014, EGD w/dilatation on 03/28/14 Past Anesthesia/Blood Transfusion Reactions: No Reported Reaction Past Psychological History: No Psychological Hx Reported Smoking Status: Never smoker Past Alcohol Use History: None Reported Past Drug Use History: None Reported - Past Family History Father Family Medical History: Cancer, Prostate Disorder Additional Family Medical History / Comment(s): Father from prostate cancer with history of TB Mother Family Medical History: Cancer, Diabetes Mellitus Additional Family Medical History / Comment(s): Mother from cancer that was through her whole body at the time of diagnosis. Brother(s) Additional Family Medical History / Comment(s): Patient has a total of 16 brothers and sisters. Daughter(s) Additional Family Medical History / Comment(s): Patient has a total of 5 children with no major medical problems. Medications and Allergies Home Medications Medication Instructions Recorded Confirmed Type Celecoxib [CeleBREX] 200 mg PO HS 02/24/16 06/02/17 History Cholecalciferol [Vitamin D3] 5,000 unit PO DAILY 01/09/17 06/02/17 History Cyanocobalamin [Vitamin B-12] 2,500 mcg PO DAILY 01/09/17 06/02/17 History Levothyroxine Sodium [Synthroid] 88 mcg PO DAILY 01/09/17 06/02/17 History Methocarbamol [Robaxin] 500 mg PO TID PRN 01/09/17 06/02/17 History Multivitamins, Thera [Multivitamin] 1 tab PO DAILY 01/09/17 06/02/17 History tiZANidine HCL [Zanaflex] 4 mg PO Q8H PRN 01/09/17 06/02/17 History Famotidine 20 mg PO BID 06/02/17 06/02/17 History Gabapentin [Neurontin] 300 mg PO TID 06/02/17 06/02/17 History Tapentadol HCl [Nucynta] 75 mg PO Q4HR 06/02/17 06/02/17 History oxyCODONE HCL/ACETAMINOPHEN 1 tab PO Q6HR PRN 06/02/17 06/02/17 History [Percocet 5-325 mg] Allergies Allergy/AdvReac Type Severity Reaction Status Date / Time morphine AdvReac Rapid Verified 06/02/17 00:09 Heart Rate Physical Exam Vitals: Vital Signs Temp Pulse Pulse Pulse Resp BP BP 06/02/17 08:00 60 65 16 06/02/17 07:00 98.7 F 60 16 122/69 06/02/17 05:00 98.1 F 65 16 159/78 06/02/17 04:29 97.9 F 82 16 147/62 06/02/17 03:40 98.1 F 95 17 158/78 06/02/17 00:03 99.2 F 80 20 169/93 Pulse Ox 06/02/17 08:00 06/02/17 07:00 97 06/02/17 05:00 98 06/02/17 04:29 99 06/02/17 03:40 98 06/02/17 00:03 98 Intake and Output 06/01/17 06/02/17 06/02/17 22:59 06:59 14:59 Intake Total 110 Balance 110 Intake: IV 110 Sodium Chloride 0.9% 1, 110 000 ml @ 110 mls/hr IV . Q9H6M [facility] Rx#:[id number] Other: Voiding Method Toilet Toilet Weight 53.07 kg Results CBC & Chem 7: 06/02/17 00:54 06/02/17 00:54 Labs: Abnormal Lab Results - Last 24 Hours (Table) 06/02/17 06/02/17 06/02/17 Range/Units 00:54 00:54 03:05 MCV 100.2 H (80.0-100.0) fL Chloride 109 H (98-107) mmol/L Ur Specific [place] 1.050 H (1.001-1.035) Urine Ketones 2+ H (Negative) Assessment and Plan Plan: 1. Acute small bowel obstruction with transition point towards the mid pelvis, most likely secondary to adhesions, recent open exploratory laparotomy 2 months ago in [place] secondary to lysis obstruction and repair of one of her Lazarus-en-Y intestinal bypass area secondary to perforation and was complicated with peritonitis with lengthy stay in the hospital, patient currently is made nothing by mouth with conservative management, patient is not on any NG tube at this time, emesis is currently being controlled with medications, and enemas were given, patient can pass limited flatus however no bowel movement yet. We' ll try Vistaril as the Zofran and Reglan did not work help as much 2. Previous Lazarus-en-Y surgery 2014 have successfully lost at least 130 pounds since then 3. Hyperlipidemia. This resolved after weight loss. 4. Hypothyroidism. Continue levothyroxine would provide IV formulation while nothing by mouth . 5. Gastroesophageal reflux disease. 6. Deafness right ear, stable. 7. Osteoarthritis of the spine, stable. 8. Vitamin D and vitamin B12 deficiency. 9. Recent exploratory laparotomy 2 months ago in [place] secondary to peritonitis GI prophylaxis and DVT prophylaxis
[2017-06-02] MEDS ORDERED: POLYETHYLENE GLYCOL 3350 17 GM POWD.PACK PO STA (16:48)
[2017-06-02] MEDS: POLYETHYLENE GLYCOL 3350 17 GM POWD.PACK PO SCH (20:41)
[2017-06-03] MEDS: SODIUM CHLORIDE 0.9% 1,000 ML IV SCH ×3 (00:16→19:17)
[2017-06-03 07:01] LABS: Basophils % (A) 0 %; CH 34.3; Eosinophils # (A) 0.1 k/uL (0-0.7); Eosinophils % (A) 4 %; HCT 36.5 % (34.0-46.0); HDW 2.33; Luc # (Auto) 0.07; Luc % (Auto) 3; Lymphocytes # (A) 0.8 k/uL (1.0-4.8); Lymphocytes % (A) 30 %; MCH 33.3 pg (25.0-35.0); MCHC 32.9 g/dL (31.0-37.0); MCV 101.3 fL (80.0-100.0); Macrocytosis Slight; Monocytes # (A) 0.3 k/uL (0-1.0); Monocytes % (A) 10 %; Neutrophils # (A) 1.5 k/uL (1.3-7.7); Neutrophils % (A) 54 %; RDW 14.1 % (11.5-15.5); WBC 2.8 k/uL (3.8-10.6); WBC (Perox) 2.64
[2017-06-03 07:29] LABS: ALT 39 U/L (9-52); AST 28 U/L (14-36); Alkaline Phosphatase 54 U/L (38-126); Anion Gap 7 mmol/L; Blood Urea Nitrogen 6 mg/dL (7-17); Calcium 8.6 mg/dL (8.4-10.2); Carbon Dioxide 27 mmol/L (22-30); Chloride 107 mmol/L (98-107); Glucose 73 mg/dL (74-99); Non-African American GFR(MDRD) >60 (>60 ml/min/1.73 sqM); Potassium 4.1 mmol/L (3.5-5.1); Sodium 141 mmol/L (137-145); Total Bilirubin 1.5 mg/dL (0.2-1.3)
[2017-06-03] MEDS: HYDROmorphone 1 MG/ML 1 ML SYRINGE IV PRN ×4 (07:43→20:41)
[2017-06-03] MEDS: ESOMEPRAZOLE 20 MG in SODIUM CHLORIDE 0.9% 50 ML IVPB SCH (09:58)
[2017-06-03] MEDS ORDERED: ACETAMINOPHEN TAB 325 MG TAB PO PRN (10:59)
[2017-06-03] MEDS ORDERED: IOHEXOL 350 MG/ML 25 ML BOTTLE (ORAL USE) PO PRN ×2 (11:23→18:58)
[2017-06-03] MEDS ORDERED: RX INFO: IV CONTRAST WAS GIVEN 1 EACH MISC MISCELLANE PRN (11:23)
--- NOTE | 2017-06-03 11:23 | P.PN ---
Subjective Principal diagnosis: abdominal pain Once that she has not passed any gas since last time. Nursing staff reported that she a bowel movement yesterday in response to the enema. She is not having any more nausea or vomiting. She is complaining of significant amount of headache this morning she does want more to eat and she is tolerating her clear liquids well. Objective - Vital Signs Vital signs: Vital Signs Temp 97.3 F L 06/03/17 07:40 Pulse 82 06/03/17 07:40 Resp 16 06/03/17 07:40 BP 118/61 06/03/17 07:40 Pulse Ox 96 06/03/17 07:40 Intake & Output 06/02/17 06/03/17 06/03/17 18:59 06:59 18:59 Intake Total 1000 1360 800 Balance 1000 1360 800 Weight 53.07 kg Intake: IV 600 Sodium Chloride 0.9% 1, 600 000 ml @ 110 mls/hr IV . Q9H6M [facility] Rx#:[id number] Intake, IV Titration 100 1210 Amount Esomeprazole 20 mg In 100 Sodium Chloride 0.9% 50 ml @ 100 mls/hr IVPB DAILY [facility] Rx#:[id number] Sodium Chloride 0.9% 1, 1210 000 ml @ 110 mls/hr IV . Q9H6M [facility] Rx#:[id number] Oral 300 150 800 Other: Voiding Method Toilet # Voids 2 1 - Constitutional General appearance: Present: cooperative - Gastrointestinal Gastrointestinal Comment(s): Abdomen is nondistended is mildly tender without any guarding or rebound. Organomegaly there's no guarding or rebound. - Labs CBC & Chem 7: 06/03/17 06:18 06/03/17 06:18 Labs: Abnormal Lab Results - Last 24 Hours (Table) 06/03/17 06/03/17 Range/Units 06:18 06:18 WBC 2.8 L (3.8-10.6) k/uL RBC 3.60 L (3.80-5.40) m/uL MCV 101.3 H (80.0-100.0) fL Plt Count 128 L (150-450) k/uL Lymphocytes # 0.8 L (1.0-4.8) k/uL BUN 6 L (7-17) mg/dL Glucose 73 L (74-99) mg/dL Total Bilirubin 1.5 H (0.2-1.3) mg/dL Total Protein 5.0 L (6.3-8.2) g/dL Albumin 3.0 L (3.5-5.0) g/dL Microbiology - Last 24 Hours (Table) 06/02/17 00:54 Blood Culture - Preliminary Blood No Growth after 24 hours Assessment and Plan Plan: Overall the patient's doing okay but I will put an order for arms repeat CT abdomen and pelvis for tomorrow to see if there is been any progress and improvement. He is okay to have Tylenol for pain. We'll continue on clear liquid diet.
--- NOTE | 2017-06-03 12:31 | PN ---
INTERVAL HISTORY: The patient continues to be hemodynamically stable, had soap enema yesterday that caused her to have liquidy stool, but no solid stool came after that. The patient does still feel concerned with that. Patient is still passing gas, tolerating ice water without having any difficulty or nausea or vomiting. PHYSICAL EXAMINATION: VITAL SIGNS: Reviewed and stable. LUNGS: Cleat to auscultation bilaterally. HEART: Normal S1, S2. ABDOMEN: Soft, no tenderness. Positive bowel sounds in all four quadrants. No guarding or rebound is appreciated. LOWER EXTREMITY: No edema. IMAGING AND LABS: White blood count is low at 2.8, normal otherwise CBC. Platelets still low at 128. Chemistry is normal. Total bilirubin 1.5. Albumin is 3. Blood cultures are negative. ASSESSMENT AND PLAN: 1. Small bowel obstruction seems to be having transition point. Patient is clinically improved. Denying abdominal pain, denying nausea and vomiting. Passing gas, but still concerned about possible severe constipation. Patient would like to see the surgeon prior to discharge and would like to continue with liquid diet at this point. Consider discharging per Surgery recommendation. 2. Hyperlipidemia, follow up outpatient. 3. Hypothyroidism. Will continue her home medications. 4. History of morbid obesity, status post gastric bypass surgery. Will continue monitoring and replace her vitamins. 5. Recent peritonitis. Patient is currently afebrile and will continue monitoring. TEED
[2017-06-03] MEDS ORDERED: ACETAMINOPHEN TAB 500 MG TAB PO PRN (16:19)
[2017-06-03] MEDS ORDERED: BUTALB/APAP/CAFF 50-325-40MG TAB PO PRN (17:43)
[2017-06-03] MEDS: diphenhydrAMINE 50 MG/ML 1 ML VIAL IVP PRN (19:16)
[2017-06-03] MEDS: POLYETHYLENE GLYCOL 3350 17 GM POWD.PACK PO SCH (20:44)
[2017-06-04] MEDS: HYDROmorphone 1 MG/ML 1 ML SYRINGE IV PRN ×3 (00:24→08:35)
[2017-06-04] MEDS: SODIUM CHLORIDE 0.9% 1,000 ML IV SCH (00:25)
[2017-06-04] MEDS: diphenhydrAMINE 50 MG/ML 1 ML VIAL IVP PRN ×3 (00:28→10:59)
[2017-06-04] MEDS: BUTALB/APAP/CAFF 50-325-40MG TAB PO PRN ×2 (03:31→12:20)
[2017-06-04 07:04] LABS: Basophils % (A) 0 %; CH 34.4; Eosinophils # (A) 0.1 k/uL (0-0.7); Eosinophils % (A) 1 %; HCT 42.8 % (34.0-46.0); HDW 2.36; HGB 14.1 gm/dL (11.4-16.0); Luc # (Auto) 0.11; Luc % (Auto) 3; Lymphocytes # (A) 1.2 k/uL (1.0-4.8); Lymphocytes % (A) 32 %; MCH 33.5 pg (25.0-35.0); MCV 101.7 fL (80.0-100.0); Macrocytosis Slight; Mean Platelet Volume 8.7; Monocytes # (A) 0.3 k/uL (0-1.0); Monocytes % (A) 8 %; Neutrophils # (A) 2.1 k/uL (1.3-7.7); Neutrophils % (A) 55 %; RBC 4.21 m/uL (3.80-5.40); RDW 13.8 % (11.5-15.5); WBC 3.8 k/uL (3.8-10.6); WBC (Perox) 3.57
[2017-06-04 07:27] LABS: ALT 52 U/L (9-52); AST 31 U/L (14-36); Alkaline Phosphatase 72 U/L (38-126); Anion Gap 8 mmol/L; Blood Urea Nitrogen 4 mg/dL (7-17); Calcium 9.4 mg/dL (8.4-10.2); Carbon Dioxide 29 mmol/L (22-30); Chloride 103 mmol/L (98-107); Glucose 81 mg/dL (74-99); Non-African American GFR(MDRD) >60 (>60 ml/min/1.73 sqM); Potassium 3.8 mmol/L (3.5-5.1); Sodium 140 mmol/L (137-145); Total Bilirubin 2.1 mg/dL (0.2-1.3); Total Protein 6.5 g/dL (6.3-8.2)
--- NOTE | 2017-06-04 09:39 | P.PN ---
Subjective Principal diagnosis: abdominal pain The patient is not having any headache today. The patient is not having any nausea vomiting today. The patient stopped reported a distended today. The patient did pass flatus yesterday does not, passing flatus having bowel movement today. Objective - Vital Signs Vital signs: Vital Signs Temp 98.5 F 06/04/17 07:47 Pulse 69 06/04/17 07:47 Resp 17 06/04/17 07:47 BP 146/78 06/04/17 07:47 Pulse Ox 98 06/04/17 07:47 Intake & Output 06/03/17 06/04/17 06/04/17 18:59 06:59 18:59 Intake Total 2480 Balance 2480 Intake: IV 880 Sodium Chloride 0.9% 1, 880 000 ml @ 110 mls/hr IV . Q9H6M [facility] Rx#:[id number] Oral 1600 Other: Voiding Method Toilet # Voids 1 - Constitutional General appearance: Present: no acute distress - Gastrointestinal Gastrointestinal Comment(s): Abdomen soft slightly soft nontender nondistended without any guarding or rebound. General gastrointestinal: Present: soft - Labs CBC & Chem 7: 06/04/17 06:35 06/04/17 06:35 Labs: Abnormal Lab Results - Last 24 Hours (Table) 06/04/17 06/04/17 Range/Units 06:35 06:35 MCV 101.7 H (80.0-100.0) fL BUN 4 L (7-17) mg/dL Total Bilirubin 2.1 H (0.2-1.3) mg/dL Microbiology - Last 24 Hours (Table) 06/02/17 00:54 Blood Culture - Preliminary Blood No Growth after 48 hours Assessment and Plan Plan: Clinically the patient is doing okay. I will repeat a computed tomography scan today to be sure that everything is resolved. If the patient's computed tomography scan which she will be discharged home to follow-up with Dr. Hayward in the outpatient setting.
[2017-06-04] MEDS ORDERED: HYDROmorphone 1 MG/ML 1 ML SYRINGE IVP STA (09:41)
[2017-06-04] MEDS: ESOMEPRAZOLE 20 MG in SODIUM CHLORIDE 0.9% 50 ML IVPB SCH (10:10)
--- NOTE | 2017-06-04 11:15 | CT ---
EXAMINATION TYPE: CT abdomen pelvis w con DATE OF EXAM: 06/04/2017 COMPARISON: Prior CT abdomen pelvis 06/02/2017 HISTORY: Small bowel obstruction and abdominal pain CT DLP: 415.6 mGycm Automated exposure control for dose reduction was used. TECHNIQUE: Helical acquisition of images from the lung bases through the pelvis have been completed. CONTRAST: Performed with Oral Contrast and with IV Contrast, patient injected with 100 mL of Omnipaque 300. FINDINGS: LUNG BASES: Some minimal dependent atelectatic changes are present, no pleural or pericardial effusio n. AORTA: No significant abnormality is appreciated. LIVER/GB: Stable, patient is post cholecystectomy PANCREAS: No significant abnormality is seen. SPLEEN: No significant abnormality is seen. ADRENALS: No significant abnormality is seen. KIDNEYS: No significant abnormality is seen. REPRODUCTIVE ORGANS: No significant abnormality is seen BOWEL: The previously identified stomach remnant now contains contrast material. Postop changes are again seen. There is no evident bowel obstruction. Distended loop of bowel in the left hemiabdomen sh ows a normal caliber on today's exam. Contrast material courses to the level of the rectum. No free f luid or pelvic adenopathy. FREE AIR: No Free Air visible. ASCITES: None visible. PELVIC ADENOPATHY: None visualized. RETROPERITONEAL ADENOPATHY: No Retroperitoneal Adenopathy visible. URINARY BLADDER: No significant abnormality is seen. OSSEOUS STRUCTURES: No significant abnormality is seen. IMPRESSION: INTERVAL IMPROVEMENT DESCRIBED.
[2017-06-04] MEDS: ONDANSETRON 4 MG/2 ML VIAL IVP PRN (13:10)
[2017-06-04 13:58] VITALS: BP 176/92; PULSE 62; RESP 16; TEMP 98.1
--- NOTE | 2017-06-04 16:10 | P.GSHP ---
History of Present Illness H&P Date: 06/02/17 Chief Complaint: nausea and vomiting Patient is a 61-year-old female who has had a gastric bypass in about 3 years ago. She's had lost considerable amount of weight. Within the last 2 months she presented with abdominal pain and was operated on at [facility] where a jejunojejunostomy had to be repaired due to intussusception. She presented today with worsening abdominal pain as well as nausea and vomiting as it didn't progress overnight. The nausea and vomiting is more severe than the pain. She continues to pass retrograde tears and have bowel movements. She is not hungry. - Constitutional Constitutional: Reports anorexia, Reports lethargy, Reports malaise - EENT Eyes: denies blurred vision Ears, nose, mouth and throat: Denies ant. neck pain - Cardiovascular Cardiovascular: Denies chest pain, Denies claudication, Denies decreased exercise tolerance, Denies dyspnea on exertion - Respiratory Respiratory: Denies congestion, Denies cough, Denies cough with sputum - Gastrointestinal Gastrointestinal: Reports abdominal pain, Reports nausea, Reports vomiting - Genitourinary (Female) Genitourinary: Denies dysuria, Denies hematuria - Musculoskeletal Musculoskeletal: Denies myalgias - Integumentary Integumentary: Denies pruritus, Denies rash - Neurological Neurological: Denies numbness, Denies weakness Past Medical History Past Medical History: GERD/Reflux, Hearing Disorder / Deafness, Osteoarthritis ( OA), Thyroid Disorder Additional Past Medical History / Comment(s): barretts disease,polyps found during colonoscopy, [place] left ear is worse , gastrojejunal stricture History of Any Multi-Drug Resistant Organisms: None Reported Past Surgical History: Bariatric Surgery, Cholecystectomy Additional Past Surgical History / Comment(s): lasik eye surgery and breast implants, lazarus-en-y gastric bypass of 03/03/2014, EGD w/dilatation on 03/28/14 Past Anesthesia/Blood Transfusion Reactions: No Reported Reaction Past Psychological History: No Psychological Hx Reported Smoking Status: Never smoker Past Alcohol Use History: None Reported Past Drug Use History: None Reported - Past Family History Father Family Medical History: Cancer, Prostate Disorder Additional Family Medical History / Comment(s): Father from prostate cancer with history of TB Mother Family Medical History: Cancer, Diabetes Mellitus Additional Family Medical History / Comment(s): Mother from cancer that was through her whole body at the time of diagnosis. Brother(s) Additional Family Medical History / Comment(s): Patient has a total of 16 brothers and sisters. Daughter(s) Additional Family Medical History / Comment(s): Patient has a total of 5 children with no major medical problems. Medications and Allergies Home Medications Medication Instructions Recorded Confirmed Type Celecoxib [CeleBREX] 200 mg PO HS 02/24/16 06/02/17 History Cholecalciferol [Vitamin D3] 5,000 unit PO DAILY 01/09/17 06/02/17 History Cyanocobalamin [Vitamin B-12] 2,500 mcg PO DAILY 01/09/17 06/02/17 History Levothyroxine Sodium [Synthroid] 88 mcg PO DAILY 01/09/17 06/02/17 History Methocarbamol [Robaxin] 500 mg PO TID PRN 01/09/17 06/02/17 History Multivitamins, Thera [Multivitamin] 1 tab PO DAILY 01/09/17 06/02/17 History tiZANidine HCL [Zanaflex] 4 mg PO Q8H PRN 01/09/17 06/02/17 History Famotidine 20 mg PO BID 06/02/17 06/02/17 History Gabapentin [Neurontin] 300 mg PO TID 06/02/17 06/02/17 History Tapentadol HCl [Nucynta] 75 mg PO Q4HR 06/02/17 06/02/17 History oxyCODONE HCL/ACETAMINOPHEN 1 tab PO Q6HR PRN 06/02/17 06/02/17 History [Percocet 5-325 mg] Allergies Allergy/AdvReac Type Severity Reaction Status Date / Time morphine AdvReac Rapid Verified 06/02/17 00:09 Heart Rate Surgical - Exam Vital Signs Temp Pulse Resp BP Pulse Ox 99.2 F 80 20 169/93 98 06/02/17 00:03 06/02/17 00:03 06/02/17 00:03 06/02/17 00:03 06/02/17 00:03 - General well developed, well nourished, moderate distress - Eyes PERRL, normal ocular movement, no icteric - ENT normal pinna, normal nares, normal mucosa - Respiratory normal expansion, normal respiratory effort - Cardiovascular Rhythm: regular - Abdomen Abdomen: soft, non tender, bowel sounds, no organomegaly, surgical scars, no masses, no guarding, no rigid, no rebound Hernia: none, no umbilical - Integumentary no rash, no growths - Neurologic normal coordination - Musculoskeletal normal gait, normal posture - Psychiatric oriented to time, oriented to person, oriented to place, speech is normal, memory intact Results - Labs 06/04/17 06:35 06/04/17 06:35 Abnormal Lab Results - Last 24 Hours (Table) 06/04/17 06/04/17 Range/Units 06:35 06:35 MCV 101.7 H (80.0-100.0) fL BUN 4 L (7-17) mg/dL Total Bilirubin 2.1 H (0.2-1.3) mg/dL Microbiology - Last 24 Hours (Table) 06/02/17 00:54 Blood Culture - Preliminary Blood No Growth after 48 hours Diabetes panel 06/04/17 Range/Units 06:35 Sodium 140 (137-145) mmol/L Potassium 3.8 (3.5-5.1) mmol/L Chloride 103 (98-107) mmol/L Carbon Dioxide 29 (22-30) mmol/L BUN 4 L (7-17) mg/dL Creatinine 0.66 (0.52-1.04) mg/dL Glucose 81 (74-99) mg/dL Calcium 9.4 (8.4-10.2) mg/dL AST 31 (14-36) U/L ALT 52 (9-52) U/L Alkaline Phosphatase 72 (38-126) U/L Total Protein 6.5 (6.3-8.2) g/dL Albumin 4.0 (3.5-5.0) g/dL Calcium panel 06/04/17 Range/Units 06:35 Calcium 9.4 (8.4-10.2) mg/dL Albumin 4.0 (3.5-5.0) g/dL Pituitary panel 06/04/17 Range/Units 06:35 Sodium 140 (137-145) mmol/L Potassium 3.8 (3.5-5.1) mmol/L Chloride 103 (98-107) mmol/L Carbon Dioxide 29 (22-30) mmol/L BUN 4 L (7-17) mg/dL Creatinine 0.66 (0.52-1.04) mg/dL Glucose 81 (74-99) mg/dL Calcium 9.4 (8.4-10.2) mg/dL Adrenal panel 06/04/17 Range/Units 06:35 Sodium 140 (137-145) mmol/L Potassium 3.8 (3.5-5.1) mmol/L Chloride 103 (98-107) mmol/L Carbon Dioxide 29 (22-30) mmol/L BUN 4 L (7-17) mg/dL Creatinine 0.66 (0.52-1.04) mg/dL Glucose 81 (74-99) mg/dL Calcium 9.4 (8.4-10.2) mg/dL Total Bilirubin 2.1 H (0.2-1.3) mg/dL AST 31 (14-36) U/L ALT 52 (9-52) U/L Alkaline Phosphatase 72 (38-126) U/L Total Protein 6.5 (6.3-8.2) g/dL Albumin 4.0 (3.5-5.0) g/dL - Imaging Additional studies: Computed tomography scan of the abdomen pelvis was reviewed is some dilation of small bowel and this probably related to the biliopancreatic limb Assessment and Plan Plan: His admission patient's abdomen is absolutely soft were Elevated Nausea Is Moderate Severe with DrRamy Treated Symptomatically and If the Ethanol Usage. And Then We'll Repeat a CAT Scan [facility]. Meanwhile We Will Give Her Stuff for Having Bowel Movements Which Includes Enemas and MiraLAX. She Seems to Be Having Irregular Bowel Movements for the Last 2-3 Weeks. Think Part of This Is Related to Her Being Constipated.
--- NOTE | 2017-06-04 16:12 | P.DS ---
Providers Date of admission: 06/02/17 03:21 Expected date of discharge: 06/04/17 Attending physician: Lara Lopez ever Consults: Dr Jon Primary care physician: Porsha Jon [place] [facility] Course: Patient was admitted presented with arm nausea and vomiting. That settled down and this was followed by headache which also settled down. She started tolerating liquid abdomen is advanced to regular diet. She continued to pass flatus and she did have a bowel movement and response to the enema. She was however placed upon her legs and milk of magnesia as been recommended to go home and take [id number] stool softeners for that. She was also prescribe Zofran. She is to follow-up in clinic with Dr. Lobato's coming week. Pertinent Studies: Ct scan abd s Patient Condition at Discharge: Good Plan - Discharge Summary New Discharge Prescriptions: No Action Celecoxib [CeleBREX] 200 mg PO HS Multivitamins, Thera [Multivitamin] 1 tab PO DAILY Methocarbamol [Robaxin] 500 mg PO TID PRN PRN Reason: Pain Cyanocobalamin [Vitamin B-12] 2,500 mcg PO DAILY Cholecalciferol [Vitamin D3] 5,000 unit PO DAILY tiZANidine HCL [Zanaflex] 4 mg PO Q8H PRN PRN Reason: Pain Levothyroxine Sodium [Synthroid] 88 mcg PO DAILY Metoprolol Tartrate [Lopressor] 25 mg PO BID #60 tab Nitroglycerin Sl Tabs [Nitrostat] 0.4 mg SUBLINGUAL Q5M PRN #25 tab PRN Reason: Chest Pain Atorvastatin [Lipitor] 80 mg PO DAILY #30 tab Tapentadol HCl [Nucynta] 75 mg PO Q4HR oxyCODONE HCL/ACETAMINOPHEN [Percocet 5-325 mg] 1 tab PO Q6HR PRN PRN Reason: Pain Gabapentin [Neurontin] 300 mg PO TID Famotidine 20 mg PO BID Discharge Medication List Celecoxib [CeleBREX] 200 mg PO HS 02/24/16 [History] Cholecalciferol [Vitamin D3] 5,000 unit PO DAILY 01/09/17 [History] Cyanocobalamin [Vitamin B-12] 2,500 mcg PO DAILY 01/09/17 [History] Levothyroxine Sodium [Synthroid] 88 mcg PO DAILY 01/09/17 [History] Methocarbamol [Robaxin] 500 mg PO TID PRN 01/09/17 [History] Multivitamins, Thera [Multivitamin] 1 tab PO DAILY 01/09/17 [History] tiZANidine HCL [Zanaflex] 4 mg PO Q8H PRN 01/09/17 [History] Atorvastatin [Lipitor] 80 mg PO DAILY #30 tab 01/11/17 [Rx] Metoprolol Tartrate [Lopressor] 25 mg PO BID #60 tab 01/11/17 [Rx] Nitroglycerin Sl Tabs [Nitrostat] 0.4 mg SUBLINGUAL Q5M PRN #25 tab 01/11/17 [Rx ] Famotidine 20 mg PO BID 06/02/17 [History] Gabapentin [Neurontin] 300 mg PO TID 06/02/17 [History] Tapentadol HCl [Nucynta] 75 mg PO Q4HR 06/02/17 [History] oxyCODONE HCL/ACETAMINOPHEN [Percocet 5-325 mg] 1 tab PO Q6HR PRN 06/02/17 [ History] Follow up Appointment(s)/Referral(s): Porsha Jon MD [Primary Care Provider] - 1-2 days (Please call office for appt. on Monday. Office is closed today.) Lara Corea MD [STAFF PHYSICIAN] - 3 Days (Please call office for appt. on Monday. Office is closed today.) Patient Instructions/Handouts: Bowel Obstruction (DC) Activity/Diet/Wound Care/Special Instructions: Soft bland/high fiber diet Activity as tolerated Discharge Disposition: HOME SELF-CARE
== END 2017-06-04 14:00 | disposition home or self-care (01) | DRG 390 ==
LOC: EC 00:01 → 3SUR 03:21
PROVIDERS: ADMIT Surgery; ATTEND Surgery
DX: K56.60 Unspecified intestinal obstruction (principal); K22.70 Barrett's esophagus without dysplasia; E03.9 Hypothyroidism, unspecified; E78.5 Hyperlipidemia, unspecified; H91.90 Unspecified hearing loss, unspecified ear; K21.9 Gastro-esophageal reflux disease without esophagitis; Z79.899 Other long term (current) drug therapy; Z98.82 Breast implant status; Z98.84 Bariatric surgery status
CPT/HCPCS: 36415; 74177; 80053; 81003; 82150; 83605; 83690; 85025; 87040; 96361; 96374; 96375; 96376; 99285

== ENCOUNTER → 2017-06-07 | Outpatient (CLI) | payer OTHER ==
[2017-06-07 15:41] VITALS: BP 151/93; PULSE 75; RESP 16; TEMP 97.7; BMI 24.2
--- NOTE | 2017-07-10 18:38 | P.PN ---
Progress Note - Text DATE OF CONSULTATION: 06/07/2017 CHIEF COMPLAINT: History of gastric bypass. HISTORY OF PRESENT ILLNESS: Leonela Mosley is a 61-year-old female who is status post Karissa-en-Y gastric bypass from March 2014. She was lost to follow-up since her last evaluation in April 2016 and then returned in March 2017. She had epigastric abdominal pain including previous history of dysphagia. She was scheduled to undergo an upper endoscopy however she developed acute onset onset abdominal pain while at a state. She was hospitalized in an out of state Hospital where she underwent open abdominal surgery and was hospitalized for over a week. She reports being placed on chronic antinausea medications including pain medications from the out of state provider. She was recently hospitalized at [facility] within the last 1-2 weeks for similar epigastric abdominal pain and presumed bowel obstruction. Now she presents for follow-up. At her height of 4 feet 8 inches, her ideal body weight is 111 pounds. Her highest weight was 174 pounds. Today she comes in weighing 108 pounds. She lost another 20 pounds in 3 months. She has maintained 66 pound weight loss. Percent excess weighloss is 105 % . Body mass index is reduced from 39.1 down to 24.2. Total BMI point reduced 14.9. PAST MEDICAL HISTORY: 1. Morbid obesity. 2. Hypothyroidism. 3. Osteoarthritis of the lower back, now resolved. 4. Iron deficiency anemia. 5. Chronic abdominal pain. 6. Small bowel obstruction. PAST SURGICAL HISTORY: 1. Karissa-en-Y gastric bypass. 2. Cholecystectomy. 3. LASIK eye surgery. 4. History of breast implants. 5. History of upper endoscopy with balloon dilatation. 6. Colonoscopy. 7. Exploratory laparotomy. MEDICATIONS: 1. Tizanidine 2. Synthroid. 3. Iron. 4. Celebrex. 5. Percocet. 6. Lopressor. 7. Robaxin. ALLERGIES: DENIES. SOCIAL HISTORY: No active tobacco use. She is . FAMILY HISTORY: Pertinent for morbid obesity. REVIEW OF SYSTEMS: GASTROINTESTINAL: She reports intermittent epigastric discomfort. No reports of dumping syndrome. No gastroesophageal reflux disease.. CONSTITUTIONAL: At her height of 4 feet 8 inches, her ideal body weight is 111 pounds. Her highest weight was 174 pounds. Percent excess weight loss is 105 %. Body mass index is reduced from 39 down to 24.2. NEURO: Has increased forgetfulness. No reports of stroke or seizure disorder. She reports new numbness along the arm. As a result, she is taking steroids and Celebrex. She has history of multiple sclerosis. MUSCULOSKELETAL: Improved lower back pain including osteoarthritis. ENDOCRINE: Hypothyroidism is stable. No reports of diabetes. RESPIRATORY: Resolution of obstructive sleep apnea. No recent pneumonia. HEENT: No troubles with vision, hearing or dysphagia. CARDIOVASCULAR: No reports of recent chest pain, palpitations. No reports of a heart attack. PSYCH: No depression or suicidal ideation. HEMATOLOGIC: No personal history of DVTs. PHYSICAL EXAM: VITAL SIGNS: 4-foot 8, 108 pounds. Body mass index of 24.2 Vital Signs 06/07/17 15:38 Temperature 97.7 F Pulse Rate 75 Respiratory 16 Rate Blood Pressure 151/93 ABDOMEN: Soft. No palpable incisional hernias. GENERAL: Well-developed female in no acute distress. HEENT: No scleral icterus. Extraocular movements grossly intact. Moist buccal mucosa. NECK: Supple without lymphadenopathy. CHEST: Non-labored respirations with equal bilateral excursions. CARDIOVASCULAR: Regular rate and rhythm. NEURO: No focal or lateralizing signs. Cranial nerves II through XII grossly within normal limits. PSYCH: Appropriate affect. Alert and oriented to person, place and time. SKIN: No rashes. Well perfused. LABS: Reviewed without infection. STUDIES: CT of the abdomen and pelvis from previous hospitalizations was reviewed consistent with no signs of a complete bowel obstruction. ASSESSMENT: 1. Morbid obesity due to excess calories, now resolved. 2. Body mass index reduced from 39.1 to 24.2 3. Status post Karissa-en-Y gastric bypass. 4. Epigastric abdominal pain.. 5. History of bowel obstruction. 6. Chronic abdominal pain. 7. Hypertension without cardiomyopathy, resolved. 8. History of antiinflammatory use. PLAN: 1. Recommend repeat CT of the abdomen and pelvis for further evaluation and management. 2. Additional prescription of pain medications on her behalf. 3. I have requested outside records for further evaluation of procedure performed. 4. She's being evaluated for presumed multiple sclerosis with additional studies. 5. Medical reconciliation was also performed. 6. Recommend follow-up in 2 weeks.
== END | disposition home or self-care (01) ==
LOC: BARWHC3 14:27
PROVIDERS: ATTEND Surgery Plastic and Reconstructive Surgery
DX: Z09 Encounter for follow-up examination after completed treatment for conditions other than malignant neoplasm (principal); R10.9 Unspecified abdominal pain; G89.29 Other chronic pain; E03.9 Hypothyroidism, unspecified; D50.9 Iron deficiency anemia, unspecified; E66.01 Morbid (severe) obesity due to excess calories; Z68.24 Body mass index [BMI] 24.0-24.9, adult; Z79.899 Other long term (current) drug therapy; Z87.19 Personal history of other diseases of the digestive system; Z79.1 Long term (current) use of non-steroidal anti-inflammatories (NSAID); Z79.891 Long term (current) use of opiate analgesic; Z98.84 Bariatric surgery status
CPT/HCPCS: 99211

== ENCOUNTER → 2017-06-09 | Outpatient (CLI) | payer OTHER ==
--- NOTE | 2017-06-09 15:38 | MR ---
EXAMINATION TYPE: MR brain wo/w con DATE OF EXAM: 06/09/2017 COMPARISON: MR brain dated 11/01/2011 HISTORY: Cramps and spasm, Left side weakness TECHNIQUE: Multiplanar, multisequence images of the brain and brainstem is performed without and with IV contras t, utilizing 10 mL intravenous MultiHance . FINDINGS: Diffusion weighted images demonstrate no evidence of a recent infarct or other diffusion ab normality. There is no extra-axial fluid collection or significant white matter signal abnormality. The ventricular system and cisternal spaces are normal in size and appearance. The brain volume is age appropriate. Prominent perivascular spaces are incidentally noted to the level of the basal gangl ia. Nonspecific T2 hyperintense nonenhancing focus is seen within the left frontal lobe, unchanged in the prior exam. Midline structures demonstrate normal morphology. The craniocervical junction appears within normal limits. Post contrast images demonstrate no abnormal enhancement. The dural venous sinuses appear pa tent. The visualized sinuses are clear and the globes are intact. T2 hyperintense 3 mm lesion within the anterior left superficial lobe of the parotid gland likely represents a lymph node and T2 hyperin tense finding on the right represents a coursing vein. IMPRESSION: 1. No abnormal enhancement, intra-axial mass effect, intracranial hemorrhage, or evidence of acute te rritorial infarct. 2. Single focus of nonspecific white matter change within the left frontal lobe, unchanged from the p rior exam and likely sequela of chronic microangiopathy. 3. Resolution of the previously seen paranasal sinus disease.
== END | disposition home or self-care (01) ==
LOC: RADMRIMAIN 13:29
PROVIDERS: ATTEND Family Medicine
DX: R25.2 Cramp and spasm (principal); R90.82 White matter disease, unspecified
CPT/HCPCS: 70553; A9577

== ENCOUNTER → 2017-12-26 | Outpatient (CLI) | payer OTHER ==
--- NOTE | 2017-12-26 16:28 | BD ---
EXAMINATION TYPE: MG DEXA axial skeleton. DATE OF EXAM: 12/26/2017 COMPARISON: NONE CLINICAL HISTORY: 62-year-old female postmenopausal screening without HRT, disorder of bone Height: 57 IN Weight: 116 LBS FRAX RISK QUESTIONS: Alcohol (3 or more units per day): NO Family History (Parent hip fracture): NO Glucocorticoids (More than 3mos): NO (Ex: prednisone, prednisolone, methylprednisolone, dexamethasone, and hydrocortisone). History of Fracture in Adulthood: NO Secondary Osteoporosis: 1. Type 1 Diabetes: NO 2. Hyperthyroidism: NO 3. Menopause before 45: NO 4. Malnutrition: NO 5. Chronic liver disease: NO Rheumatoid Arthritis: YES Current Tobacco Use: NO RISK FACTORS HISTORY OF: History of Wrist Fracture: YES LEFT WRIST When: AGE 14 Family History of Osteoporosis: YES MOTHER Active: YES Diet low in dairy products/other sources of calcium: YES Postmenopausal woman: AGE 60 MEDICATIONS: Thyroid Medications: YES Which medication: Levothyroxine How Lon + YEARS Additional Medications: LEVOTHYROXINE, VIT D, VIT B, EXAM MEASUREMENTS: Bone mineral densitometry was performed using the b3 bio System. Bone mineral density as measured about the Lumbar spine is: ----- L1-L4(G/cm2): 1.169 T Score Values are as follows: ----- L2: -0.9 ----- L3: 0.3 ----- L4: 0.6 ----- L1-L4: -0.1 Bone mineral density BASELINE Bone mineral density about the R hip (g/cm2): 0.915 Bone mineral density about the L hip (g/cm2): 0.844 T Score values are as follows: -----R Neck: -0.9 -----L Neck: -1.4 -----R Total: -0.6 -----L Total: -0.7 Bone mineral density BASELINE IMPRESSION: Osteopenia (T Score between -2.5 and -1). There is slightly increased risk of fracture and the patient may be considered for treatment. Re-Screen 2-5 years. NOTE: T-SCORE=SD OF THE YOUNG ADULT MEAN.
== END | disposition home or self-care (01) ==
LOC: RADBDWWP 15:00
PROVIDERS: ATTEND Family Medicine
DX: M85.80 Other specified disorders of bone density and structure, unspecified site (principal); Z78.0 Asymptomatic menopausal state
CPT/HCPCS: 77080

== ENCOUNTER → 2018-01-01 | Outpatient (CLI) | payer OTHER ==
--- NOTE | 2018-01-03 10:45 | MM ---
Reason for exam: screening (asymptomatic). Last mammogram was performed 1 year and 5 months ago. History: Patient is postmenopausal. Family history of breast cancer in maternal cousin at age 30. Silicone gel implants in both breasts, 1989. Physical Findings: A clinical breast exam by your physician is recommended on an annual basis and results should be correlated with mammographic findings. MG Screening Mammo Implant/CAD Bilateral CC, MLO, and ID view(s) were taken. Prior study comparison: July 19, 2016, bilateral MG screening mammo implant/CAD. There are scattered fibroglandular densities. Bilateral retropectoral saline implants. Bilateral vascular calcifications. No significant changes when compared with prior studies. ASSESSMENT: Negative, BI-RAD 1 RECOMMENDATION: Routine screening mammogram of both breasts in 1 year.
== END | disposition home or self-care (01) ==
LOC: RADMAMWWP 13:28
PROVIDERS: ATTEND Family Medicine
DX: Z12.31 Encounter for screening mammogram for malignant neoplasm of breast (principal)
CPT/HCPCS: 77067

== ENCOUNTER → 2018-03-14 | Outpatient (CLI) | payer OTHER ==
[2018-03-14 15:26] VITALS: BP 158/87; PULSE 76; TEMP 97.8; BMI 28.2
--- NOTE | 2018-03-14 16:28 | P.PN ---
Subjective Progress Note Date: 03/14/18 DATE OF CONSULTATION: 03/14/2018 CHIEF COMPLAINT: History of gastric bypass. HISTORY OF PRESENT ILLNESS: Leonela Mosley is a 61-year-old female who is status post Karissa-en-Y gastric bypass from March 2014. She was lost to follow-up since her last evaluation in April 2016 and then returned in March 2017. She had epigastric abdominal pain including previous history of dysphagia. She was scheduled to undergo an upper endoscopy however she developed acute onset onset abdominal pain while at a state. She was hospitalized in an out of state Hospital where she underwent open abdominal surgery and was hospitalized for over a week. She reports being placed on chronic antinausea medications including pain medications from the out of state provider. She was recently hospitalized at [facility] within the last 1-2 weeks for similar epigastric abdominal pain and presumed bowel obstruction. Now she presents for follow-up. At her height of 4 feet 8 inches, her ideal body weight is 111 pounds. Her highest weight was 174 pounds. Today she comes in weighing 108 pounds. She lost another 20 pounds in 3 months. She has maintained 66 pound weight loss. Percent excess weighloss is 105 % . Body mass index is reduced from 39.1 down to 24.2. Total BMI point reduced 14.9. She comes in today at 126 pounds from her last weight of 108 pounds on 2016. She comes in with chronic troubles with panniculitis. She has tried local treatment with vaseline and baby powder without improvement of symptoms. She comes in for panniculectomy. PAST MEDICAL HISTORY: 1. Morbid obesity. 2. Hypothyroidism. 3. Osteoarthritis of the lower back, now resolved. 4. Iron deficiency anemia. 5. Chronic abdominal pain. 6. Small bowel obstruction. PAST SURGICAL HISTORY: 1. Karissa-en-Y gastric bypass. 2. Cholecystectomy. 3. LASIK eye surgery. 4. History of breast implants. 5. History of upper endoscopy with balloon dilatation. 6. Colonoscopy. 7. Exploratory laparotomy. MEDICATIONS: 1. Tizanidine 2. Synthroid. 3. Iron. 4. Celebrex. 5. Percocet. 6. Lopressor. 7. Robaxin. ALLERGIES: DENIES. SOCIAL HISTORY: No active tobacco use. She is . FAMILY HISTORY: Pertinent for morbid obesity. REVIEW OF SYSTEMS: GASTROINTESTINAL: She reports intermittent epigastric discomfort. No reports of dumping syndrome. No gastroesophageal reflux disease.. CONSTITUTIONAL: At her height of 4 feet 8 inches, her ideal body weight is 111 pounds. Her highest weight was 174 pounds. Percent excess weight loss is 105 %. Body mass index is reduced from 39 down to 24.2. NEURO: Has increased forgetfulness. No reports of stroke or seizure disorder. She reports new numbness along the arm. As a result, she is taking steroids and Celebrex. She has history of multiple sclerosis. MUSCULOSKELETAL: Improved lower back pain including osteoarthritis. ENDOCRINE: Hypothyroidism is stable. No reports of diabetes. RESPIRATORY: Resolution of obstructive sleep apnea. No recent pneumonia. HEENT: No troubles with vision, hearing or dysphagia. CARDIOVASCULAR: No reports of recent chest pain, palpitations. No reports of a heart attack. PSYCH: No depression or suicidal ideation. HEMATOLOGIC: No personal history of DVTs. PHYSICAL EXAM: VITAL SIGNS: 4-foot 8, 108 pounds. Body mass index of 24.2 Vital Signs Temp 97.8 F 03/14/18 15:21 Pulse 76 03/14/18 15:21 Resp BP 158/87 03/14/18 15:21 Pulse Ox Intake & Output 03/13/18 03/14/18 03/14/18 18:59 06:59 18:59 Weight 57.153 kg ABDOMEN: Soft. No palpable incisional hernias. GENERAL: Well-developed female in no acute distress. HEENT: No scleral icterus. Extraocular movements grossly intact. Moist buccal mucosa. NECK: Supple without lymphadenopathy. CHEST: Non-labored respirations with equal bilateral excursions. CARDIOVASCULAR: Regular rate and rhythm. NEURO: No focal or lateralizing signs. Cranial nerves II through XII grossly within normal limits. PSYCH: Appropriate affect. Alert and oriented to person, place and time. SKIN: No rashes. Well perfused. LABS: Reviewed without infection. STUDIES: CT of the abdomen and pelvis from previous hospitalizations was reviewed consistent with no signs of a complete bowel obstruction. ASSESSMENT: 1. Morbid obesity due to excess calories, now resolved. 2. Body mass index reduced from 39.1 to 24.2 3. Status post Karissa-en-Y gastric bypass. 4. Epigastric abdominal pain.. 5. History of bowel obstruction. 6. Chronic abdominal pain. 7. Hypertension without cardiomyopathy, resolved. 8. History of antiinflammatory use. 9. Panniculitis. PLAN: 1. She comes in with problems with her skin and panniculitis. 2. Benefits and risk of surgery of reviewed with flap failure from previous cholecystectomy. 3. Inpatient hospitalization overnight for pain control. 4. Two week protein diet to correct protein malnutrition. 5. No lifting restrictions for 6 to 8 weeks. 6. SIA drain care reviewed. 7. Will need corrected metabolic labs. Objective - Vital Signs Vital signs: Vital Signs Temp 97.8 F 03/14/18 15:21 Pulse 76 03/14/18 15:21 Resp BP 158/87 03/14/18 15:21 Pulse Ox Intake & Output 03/13/18 03/14/18 03/14/18 18:59 06:59 18:59 Weight 57.153 kg
[2018-03-14 17:42] LABS: HCT 42.7 % (34.0-46.0); HGB 14.3 gm/dL (11.4-16.0); MCH 30.8 pg (25.0-35.0); MCHC 33.5 g/dL (31.0-37.0); Mean Platelet Volume 8.5; Platelet Count 182 k/uL (150-450); RBC 4.64 m/uL (3.80-5.40); RDW 12.9 % (11.5-15.5); WBC 4.8 k/uL (3.8-10.6)
[2018-03-14 17:52] LABS: Partial Thromboplastin Time 25.4 sec (22.0-30.0); Prothrombin Time 9.5 sec (9.0-12.0)
[2018-03-14 17:59] LABS: ALT 18 U/L (9-52); AST 27 U/L (14-36); Albumin 4.6 g/dL (3.5-5.0); Alkaline Phosphatase 106 U/L (38-126); Anion Gap 15 mmol/L; Blood Urea Nitrogen 18 mg/dL (7-17); Calcium 9.6 mg/dL (8.4-10.2); Carbon Dioxide 25 mmol/L (22-30); Chloride 106 mmol/L (98-107); Cholesterol 150 mg/dL (<200); Glucose 85 mg/dL (74-99); HDL Cholesterol 60 mg/dL (40-60); LDL Cholesterol,Calculated 74 mg/dL (0-99); Magnesium 2.1 mg/dL (1.6-2.3); Phosphorus 5.1 mg/dL (2.5-4.5); Potassium 4.3 mmol/L (3.5-5.1); Sodium 146 mmol/L (137-145); Total Bilirubin 0.4 mg/dL (0.2-1.3); Total Protein 7.4 g/dL (6.3-8.2); Triglycerides 80 mg/dL (<150)
[2018-03-15 01:14] LABS: Iron Saturation 19.28 (12.00-45.00)
[2018-03-15 01:22] LABS: Vitamin D 25 Hydroxy 31.1 ng/mL (30.0-100.0)
[2018-03-15 01:32] LABS: Parathyroid Hormone Intact 46.9 pg/mL (14.0-72.0)
[2018-03-15 01:58] LABS: Hemoglobin A1C 5.1 % (4.0-6.0)
== END | disposition home or self-care (01) ==
LOC: BARWHC3 14:43
PROVIDERS: ATTEND Surgery Plastic and Reconstructive Surgery
DX: Z09 Encounter for follow-up examination after completed treatment for conditions other than malignant neoplasm (principal); E21.1 Secondary hyperparathyroidism, not elsewhere classified; D50.9 Iron deficiency anemia, unspecified; E89.1 Postprocedural hypoinsulinemia; E44.0 Moderate protein-calorie malnutrition; E55.9 Vitamin D deficiency, unspecified; K74.1 Hepatic sclerosis; N19 Unspecified kidney failure; K50.90 Crohn's disease, unspecified, without complications; R10.13 Epigastric pain; M79.3 Panniculitis, unspecified; Z98.84 Bariatric surgery status; Z92.29 Personal history of other drug therapy; Z79.899 Other long term (current) drug therapy
CPT/HCPCS: 36415; 80053; 80061; 82306; 82525; 82607; 82728; 82746; 83036; 83540; 83550; 83735; 83970; 84100; 84134; 84255; 84425; 84443; 84590; 84630; 85027; 85610; 85730; 99211

== ENCOUNTER 2018-04-09 15:09 | Emergency (ER) | payer OTHER ==
[2018-04-09 15:25] VITALS: BP 145/79; PULSE 52; RESP 16; TEMP 98.7
--- NOTE | 2018-04-09 15:48 | ED ---
General Adult HPI - General Chief complaint: Back Pain/Injury Stated complaint: Back/Hip Pain Time Seen by Provider: 04/09/18 15:35 Source: EMS, RN notes reviewed Mode of arrival: EMS Limitations: no limitations - History of Present Illness Initial comments: This is a 62-year-old female who presents to the emergency department with chief complaint of left hip pain. Patient states that she has arthritis in her low back and in her hips. She states that she is being treated for these conditions by her primary care provider with cortisone injections. Patient states that she had cortisone injections of her left hip and mid lumbar spine last Monday. She states that approximately 24 hours after, she developed a significant increase in pain in her left hip. She states that she has difficulty sitting and laying on her back. She states that she has been sleeping on her stomach. She states that she was at her primary care physician' s office prior to arrival to the emergency department. Her primary care provider sent her in a prescription for pain medication. Patient states that she was sent to the emergency department because she is unable to walk due to the pain and her doctor wanted x-rays taken of her hips. Patient denies any recent injuries, trauma or falls. Denies fevers or chills, chest pain or shortness breath, abdominal pain, nausea or vomiting. - Related Data Home Medications Medication Instructions Recorded Confirmed Levothyroxine Sodium [Synthroid] 88 mcg PO DAILY 01/09/17 04/09/18 Multivitamins, Thera [Multivitamin 1 tab PO DAILY 03/14/18 04/09/18 (formulary)] Allergies Allergy/AdvReac Type Severity Reaction Status Date / Time morphine AdvReac Rapid Verified 04/09/18 15:47 Heart Rate Review of Systems ROS Statement: Those systems with pertinent positive or pertinent negative responses have been documented in the HPI. ROS Other: All systems not noted in ROS Statement are negative. Past Medical History Past Medical History: GERD/Reflux, Hearing Disorder / Deafness, Osteoarthritis ( OA), Thyroid Disorder Additional Past Medical History / Comment(s): barretts disease,polyps found during colonoscopy, [place] left ear is worse , gastrojejunal stricture History of Any Multi-Drug Resistant Organisms: None Reported Past Surgical History: Bariatric Surgery, Cholecystectomy Additional Past Surgical History / Comment(s): lasik eye surgery and breast implants, lazarus-en-y gastric bypass of 03/03/2014, EGD w/dilatation on 03/28/14 Past Anesthesia/Blood Transfusion Reactions: No Reported Reaction Past Psychological History: No Psychological Hx Reported Smoking Status: Never smoker Past Alcohol Use History: None Reported Past Drug Use History: None Reported - Past Family History Father Family Medical History: Cancer, Prostate Disorder Additional Family Medical History / Comment(s): Father from prostate cancer with history of TB Mother Family Medical History: Cancer, Diabetes Mellitus Additional Family Medical History / Comment(s): Mother from cancer that was through her whole body at the time of diagnosis. Brother(s) Additional Family Medical History / Comment(s): Patient has a total of 16 brothers and sisters. Daughter(s) Additional Family Medical History / Comment(s): Patient has a total of 5 children with no major medical problems. General Exam - General Exam Comments Initial Comments: General: Awake and alert, well-developed; lying on her stomach on ED stretcher with at bedside. Patient unable to sit due to pain in her left hip. HEENT: Head atraumatic, normocephalic. Pupils are equal, round and reactive to light. Extraocular movements intact. Oropharynx moist without erythema or exudate. Neck: Supple. Normal ROM. Cardiovascular: Regular rate and rhythm. No murmurs, rubs or gallops. Chest symmetrical. Respiratory: Lungs clear to auscultation bilaterally. No wheezes, rales or rhonchi. Normal respiratory effort with no use of accessory muscles. Musculoskeletal: Normal ROM bilateral upper and lower extremities. There is tenderness on palpation of the greater trochanter of the left hip. No swelling , ecchymosis or erythema noted. Sensation is intact. Skin: [place], warm and dry without rashes or lesions. Neurological: Alert and oriented x3. CN II-XII grossly intact. Speech is fluent and answers are appropriate. No focal neuro deficits. Limitations: no limitations Course Vital Signs 04/09/18 15:21 Temperature 98.7 F Pulse Rate 52 L Respiratory 16 Rate Blood Pressure 145/79 O2 Sat by Pulse 99 Oximetry Medical Decision Making - Medical Decision Making This is a 8-year-old female who presents to the emergency department with chief complaint of left hip pain. Patient states that she receives cortisone injections for left hip and low back arthritis from her primary care provider. She received a cortisone injection this past Monday. She is experiencing increasing pain in the left hip. She did follow up with her primary care provider who sent her to the emergency department because patient was unable to ambulate due to the pain. X-rays were obtained of the left hip and lumbar spine. No acute fractures or dislocations were noted. Patient was given pain medication while in the emergency department. She states that her pain has improved. She is now able to sit on the edge of the ED stretcher without difficulty. She is ambulating better. Vital signs are stable and she is in no acute distress. She'll be discharged home at this time. Recommended taking the pain medication that was prescribed by her primary care physician. She is in agreement with plan and voices understanding. All questions answered. - Radiology Data Radiology results: report reviewed X-ray lumbar spine impression: No acute fracture or dislocation is seen in the lumbar spine. Left hip and AP pelvis x-rays impression: There is no acute fracture or dislocation. Disposition Clinical Impression: Left hip pain Disposition: HOME SELF-CARE Condition: Good Instructions: Hip Pain (ED) Additional Instructions: Please take medications as prescribed by your primary care provider. Please follow up with primary care provider within 1-2 days. Return to emergency department if symptoms should worsen or any concerns arise. Is patient prescribed a controlled substance at d/c from ED?: No Referrals: Porsha Jon MD [Primary Care Provider] - 1-2 days Time of Disposition: 17:04
[2018-04-09] MEDS ORDERED: fentaNYL (PF) 50 MCG/ML 2 ML AMP IV STA (15:52)
[2018-04-09] MEDS ORDERED: KETOROLAC 30 MG/ML 1 ML VIAL IVP STA (15:52)
[2018-04-09] MEDS ORDERED: fentaNYL (PF) 50 MCG/ML 5 ML AMP IM STA (16:28)
[2018-04-09] MEDS ORDERED: fentaNYL (PF) 50 MCG/ML 2 ML AMP IM STA (16:28)
[2018-04-09] MEDS ORDERED: KETOROLAC 30 MG/ML 1 ML VIAL IM STA (16:31)
--- NOTE | 2018-04-09 16:53 | XR ---
EXAMINATION TYPE: XR lumbar spine 2 or 3V DATE OF EXAM: 04/09/2018 CLINICAL HISTORY: pain TECHNIQUE: Three views of the lumbar spine are submitted. COMPARISON: None. FINDINGS: There are 5 lumbar type vertebral bodies identified. The lumbar spine shows satisfactory alignment w ithout evidence of acute fracture or dislocation. Vertebral body heights are within normal limits. Moderate degenerative disc space narrowing identified. The overlying soft tissue appears unremarkabl e. IMPRESSION: No acute fracture or dislocation is seen in the lumbar spine. ICD 10 NO FRACTURE, INITIAL EVALUATION
--- NOTE | 2018-04-09 16:54 | XR ---
EXAMINATION TYPE: XR Hip LT and AP Pelvis DATE OF EXAM: 04/09/2018 CLINICAL HISTORY: pain TECHNIQUE: AP and frogleg views of the left hip are obtained. Single view of the pelvis is also subm itted. COMPARISON: None. FINDINGS: There is no acute fracture/dislocation evident. The joint space appears within normal li mits. The overlying soft tissue appears unremarkable. IMPRESSION: 1. There is no acute fracture or dislocation.ICD 10 NO FRACTURE, INITIAL EVALUATION
== END 2018-04-09 17:06 | disposition home or self-care (01) ==
LOC: EC 15:09
DX: M25.552 Pain in left hip (principal); M54.5 Low back pain; E07.9 Disorder of thyroid, unspecified; Z79.899 Other long term (current) drug therapy; Z88.5 Allergy status to narcotic agent; Z53.8 Procedure and treatment not carried out for other reasons
CPT/HCPCS: 72100; 73502; 99284; 96372 ×2; J3010; J1885

== ENCOUNTER → 2018-05-16 | Outpatient (CLI) | payer OTHER ==
--- NOTE | 2018-05-17 06:03 | MR ---
EXAMINATION TYPE: MR hip LT wo con DATE OF EXAM: 05/16/2018 COMPARISON: None HISTORY: Lt hip pain x 5 years Standard multiplanar, multisequence MRI departmental protocol Multiplanar, multisequence images of the left hip were acquired. Diffusion weighted imaging was perfo rmed. FINDINGS: Bony pelvis appears intact. Sacroiliac joints appear normal. There is no evidence of a pelv ic mass. There is no free fluid in the pelvis. Proximal femurs appear intact. There is no sign of ninfa scular necrosis. There is no evidence of a fracture. The acetabula appear intact. There is no evidenc e of any significant hip joint effusion. I see no evidence of any significant arthritic disease. IMPRESSION: Negative MR scan of the left hip.
== END | disposition home or self-care (01) ==
LOC: RADMRIMAIN 19:05
PROVIDERS: ATTEND Family Medicine
DX: M24.252 Disorder of ligament, left hip (principal)

== ENCOUNTER 2018-06-25 09:25 | Inpatient (IN) | payer OTHER ==
[2018-06-12 10:59] VITALS: BMI 26.2
--- NOTE | 2018-06-24 17:20 | P.GSHP ---
History of Present Illness H&P Date: 06/25/18 DATE OF SERVICE: 06/25/2018 CHIEF COMPLAINT: Panniculitis HISTORY OF PRESENT ILLNESS: Leonela Mosley is a 63-year-old female who is status post Lazarus-en-Y gastric bypass from March 2014. She is 4 years out. At her height of 4 feet 8 inches, her ideal body weight is 111 pounds. Her highest weight was 174 pounds. Today she comes in weighing 117 pounds from her last weight of 126 pounds 3 months ago. She lost 9 pounds in 3 months. She has maintained 57 pound weight loss. Percent excess weight loss is 91 % . Body mass index is reduced from 39.1 down to 26.2 She comes in with chronic troubles with panniculitis. She has tried local treatment with vaseline and baby powder without improvement of symptoms. She comes in for evaluation for a panniculectomy. PAST MEDICAL HISTORY: 1. Morbid obesity, BMI 39.1, initial 2. Hypothyroidism. 3. Osteoarthritis of the lower back, now resolved. 4. Iron deficiency anemia. 5. Chronic abdominal pain. 6. Small bowel obstruction. PAST SURGICAL HISTORY: 1. Lazarus-en-Y gastric bypass. 2. Cholecystectomy. 3. LASIK eye surgery. 4. History of breast implants. 5. History of upper endoscopy with balloon dilatation. 6. Colonoscopy. 7. Exploratory laparotomy. MEDICATIONS: 1. Multivitamin 2. Synthroid ALLERGIES: MORPHINE SOCIAL HISTORY: No active tobacco use. She is . FAMILY HISTORY: Pertinent for morbid obesity. REVIEW OF SYSTEMS: GASTROINTESTINAL: She reports intermittent epigastric discomfort. No reports of dumping syndrome. No gastroesophageal reflux disease.. CONSTITUTIONAL: At her height of 4 feet 8 inches, her ideal body weight is 111 pounds. Her highest weight was 174 pounds. Today she comes in weighing 117 pounds from her last weight of 126 pounds 3 months ago. She lost 9 pounds in 3 months. She has maintained 57 pound weight loss. Percent excess weight loss is 91 % . Body mass index is reduced from 39.1 down to 26.2. NEURO: No reports of stroke or seizure disorder. She has history of multiple sclerosis. MUSCULOSKELETAL: Improved lower back pain including osteoarthritis. ENDOCRINE: Hypothyroidism is stable. No reports of diabetes. RESPIRATORY: Resolution of obstructive sleep apnea. No recent pneumonia. HEENT: No troubles with vision, hearing or dysphagia. CARDIOVASCULAR: No reports of recent chest pain, palpitations. No reports of a heart attack. PSYCH: No depression or suicidal ideation. HEMATOLOGIC: No personal history of DVTs. PHYSICAL EXAM: VITAL SIGNS: 4-foot 8, 117 pounds. Body mass index of 26.2 ABDOMEN: Soft. No palpable incisional hernias. GENERAL: Well-developed female in no acute distress. HEENT: No scleral icterus. Extraocular movements grossly intact. Moist buccal mucosa. NECK: Supple without lymphadenopathy. CHEST: Non-labored respirations with equal bilateral excursions. CARDIOVASCULAR: Regular rate and rhythm. NEURO: No focal or lateralizing signs. Cranial nerves II through XII grossly within normal limits. PSYCH: Appropriate affect. Alert and oriented to person, place and time. SKIN: No rashes. Well perfused. ASSESSMENT: 1. Morbid obesity due to excess calories, now resolved. 2. Body mass index reduced from 39.1 to 26.2 3. Status post Lazarus-en-Y gastric bypass. 4. Epigastric abdominal pain.. 5. History of bowel obstruction. 6. Chronic abdominal pain. 7. Hypertension without cardiomyopathy, resolved. 8. History of antiinflammatory use. 9. Panniculitis. PLAN: 1. She comes in with problems with her skin and panniculitis. 2. Benefits and risk of surgery were reviewed with flap failure from previous cholecystectomy. Risk of skin infection, chronic pain, abdominal seroma, SIA drain placement were reviewed in detail. 3. Inpatient hospitalization overnight for pain control. 4. Two week protein diet to correct protein malnutrition. 5. No lifting restrictions for 6 to 8 weeks. 6. SIA drain care reviewed. Past Medical History Past Medical History: GERD/Reflux, Hearing Disorder / Deafness, Osteoarthritis ( OA), Thyroid Disorder Additional Past Medical History / Comment(s): barretts disease,polyps found during colonoscopy, [place] left ear is worse, lt hip pain steroid injection 1 month ago, lower back pain , gastrojejunal stricture History of Any Multi-Drug Resistant Organisms: None Reported Past Surgical History: Bariatric Surgery, Cholecystectomy Additional Past Surgical History / Comment(s): lasik eye surgery and breast implants, lazarus-en-y gastric bypass of 03/03/2014, EGD w/dilatation on 03/28/14, 2015 abdominal bariatric surgery Past Anesthesia/Blood Transfusion Reactions: No Reported Reaction Past Psychological History: No Psychological Hx Reported Smoking Status: Never smoker Past Alcohol Use History: None Reported Additional Past Alcohol Use History / Comment(s): Patient is a lifelong nonsmoker. She denies any medical marijuana, marijuana, street drug use. She lives at home with her . She is worked as a housewife. Past Drug Use History: None Reported - Past Family History Father Family Medical History: Cancer, Prostate Disorder Additional Family Medical History / Comment(s): Father from prostate cancer with history of TB Mother Family Medical History: Cancer, Diabetes Mellitus Additional Family Medical History / Comment(s): Mother from cancer that was through her whole body at the time of diagnosis. Brother(s) Additional Family Medical History / Comment(s): Patient has a total of 16 brothers and sisters. Daughter(s) Additional Family Medical History / Comment(s): Patient has a total of 5 children with no major medical problems. Medications and Allergies Home Medications Medication Instructions Recorded Confirmed Type Levothyroxine Sodium [Synthroid] 88 mcg PO DAILY 01/09/17 06/13/18 History Multivitamins, Thera [Multivitamin 1 tab PO DAILY 03/14/18 06/13/18 History (formulary)] Cholecalciferol [Vitamin D3] 2,000 unit PO DAILY 06/12/18 06/13/18 History Cyanocobalamin [Vitamin B-12] 2,500 mcg PO DAILY 06/12/18 06/13/18 History Vitamin A Acetate [Vitamin A] 10,000 unit SL DAILY 06/12/18 06/13/18 History Zinc Gluconate [Zinc] 50 mg PO BID 06/12/18 06/13/18 History Allergies Allergy/AdvReac Type Severity Reaction Status Date / Time morphine AdvReac Rapid Verified 06/13/18 14:49 Heart Rate
[~2018-06-25 09:25] MED LIST: DEXAMETHASONE SOD PHOSPHATE 10 MG/ML 1 ML VIAL IV ONE; HEPARIN SODIUM,PORCINE 5,000 UNIT/ML 1 ML VIAL SQ ONE; HYDROmorphone 0.5 MG/0.5 ML SYRINGE IVP PRN; ONDANSETRON 4 MG/2 ML VIAL IVP ONE; ceFAZolin IN SWFI 2 GM/20 ML SYRINGE IVP ONE
[2018-06-25] MEDS: LACTATED RINGERS 1,000 ML IV SCH (13:50)
[2018-06-25] MEDS ORDERED: LIDOCAINE 1% 20 ML VIAL (10MG/ML) FOR IV START INTRADERMA ONE (14:01)
[2018-06-25] MEDS ORDERED: SUCCINYLCHOLINE CHLORIDE 100 MG/5 ML SYR IV ONE (15:01)
[2018-06-25] MEDS ORDERED: LIDOCAINE 1% INJ 10MG/ML (20 ML MDV) ONE (15:01)
[2018-06-25] MEDS ORDERED: MIDAZOLAM 2 MG/2 ML VIAL ONE (15:01)
[2018-06-25] MEDS ORDERED: ROCURONIUM BROMIDE 10 MG/ML 10 ML VIAL IV ONE (15:01)
[2018-06-25] MEDS ORDERED: PROPOFOL 10 MG/ML 20 ML VIAL IV ONE (15:01)
[2018-06-25] MEDS ORDERED: HYDROmorphone (PF) 1 MG/ML ONE (15:01)
[2018-06-25] MEDS ORDERED: GLYCOPYRROLATE 0.2 MG/ML 2 ML VIAL ONE (15:01)
[2018-06-25] MEDS ORDERED: NEOSTIGMINE 1 MG/ML 10 ML VIAL ONE (15:01)
[2018-06-25] MEDS ORDERED: fentaNYL (PF) 50 MCG/ML 2 ML AMP ONE (15:01)
--- NOTE | 2018-06-25 17:49 | P.OP ---
Date of Procedure: 06/25/18 Description of Procedure: SURGEON: FLACO PARRA MD PREOPERATIVE DIAGNOSES: 1. Morbid obesity due to excess calories, now resolved. 2. Body mass index reduced from 39.1 to 26.2 3. Status post Karissa-en-Y gastric bypass. 4. Epigastric abdominal pain.. 5. History of bowel obstruction. 6. Chronic abdominal pain. 7. Hypertension without cardiomyopathy, resolved. 8. History of antiinflammatory use. 9. Panniculitis. POSTOPERATIVE DIAGNOSES: 1. Morbid obesity due to excess calories, now resolved. 2. Body mass index reduced from 39.1 to 26.2 3. Status post Karissa-en-Y gastric bypass. 4. Epigastric abdominal pain.. 5. History of bowel obstruction. 6. Chronic abdominal pain. 7. Hypertension without cardiomyopathy, resolved. 8. History of antiinflammatory use. 9. Panniculitis. 10. Ventral hernia, 10 x 15 cm, initial and reducible. 11. Umbilical hernia, initial, reducible OPERATION: 1. Panniculectomy, 2.4 pounds. 2. Primary repair of ventral hernia 10 x 15 cm without mesh. ANESTHESIA: General ESTIMATED BLOOD LOSS: 200 mL SPECIMENS REMOVED: Pannus 2.4 pounds. COMPLICATIONS: None. CONDITION: Stable. DRAINS: Two #19 Burt drains below abdominal flap extending through the pubis. OPERATIVE FINDINGS: 1. Pannus weighing 2.4 pounds, excised. 2. Abdominal ventral hernia of 10 x 15 cm along the midline repaired primarily using fascial imbrication. INDICATIONS: Leonela Mosley is a 63-year-old female who is status post Karissa-en-Y gastric bypass from March 2014. She is 4 years out. At her height of 4 feet 8 inches, her ideal body weight is 111 pounds. Her highest weight was 174 pounds. Today she comes in weighing 117 pounds from her last weight of 126 pounds 3 months ago. She lost 9 pounds in 3 months. She has maintained 57 pound weight loss. Percent excess weight loss is 91 % . Body mass index is reduced from 39.1 down to 26.2. She comes in with chronic troubles with panniculitis. She has tried local treatment with vaseline and baby powder without improvement of symptoms. She presents for a panniculectomy. Despite medical therapy with prescription powders such as Nystatin over 1 year, she has developed severe medical refractory panniculitis. Benefits and risks of the procedure including bleeding, infection, cosmetic deformity, abdominal seromas, placement of drains , risk of flap failure were described at length. Informed consent was obtained. DESCRIPTION: In the preanesthesia care unit the patient was marked with an indelible marker. She had also been given heparin subcutaneously. The patient was brought into the operating room and laid in supine position. After general induction, a Saavedra catheter was placed. The abdomen was then prepped and draped in standard sterile fashion using ChloraPrep. The skin was prepped as far laterally to the back, inferiorly to the upper thighs and superiorly to above the bilateral breasts. A timeout protocol was confirmed with the surgical team regarding patient's name , procedure to be performed, including preoperative medications. She had received Ancef 2 grams IV antibiotics. Once the time-out protocol was confirmed with the surgical team, the patient was re-marked with indelible marker whereby the midline of the xiphoid to the mons pubis was marked. The anterior/superior iliac spine along the bilateral hips was also marked. At 8 cm above the pubis commissure a transverse incision was made for the inferior portion of the flap. Using a #10 blade, the incision was taken from the midline laterally to above the anterior/superior iliac spine, initially on the left side of the patient and then on the right side of the patient. Electro-Bovie cautery was used to control for hemostasis. The dissection was taken down to the level of the fascia. Landmarks used were the xiphoid process as well as the bilateral costal margins for the superior margin. Care was taken to avoid any creation of dog ears during the dissection. Once hemostasis was checked, a large ventral hernia fascial defect of 10 x 15 cm was identified unrelated to her bariatric procedure. During this dissection , the umbilicus was truncated at its fascial insertion. The umbilicus hernia was addressed with incorporation of the ventral hernia repair. Starting from the xiphoid process, fascial imbrication was performed using #2 Ethibond. Multiple facial imbrications at least 3 layers were performed. The ventral hernia defect was completely repaired and closed. Hemostasis was once again checked with electro-Bovie cautery and all defects were addressed. Attention was now brought to closure of the flap. Using stainless steel skin deuce, the midline was once again marked of the upper flap as well as the pubic commissure. The patient was placed in a flexed position of approximately 30 degrees at the hips. The pannus was extended inferiorly to the feet. The upper flap was created once the excess skin was excised. Again care was taken to avoid any dog ears along the lateral aspect of the incisions. Once excised, the pannus was weighed at 2.4 pounds. The upper and lower flaps were reapproximated at the midline and then laterally to the skin with skin deuce. Once reapproximated, the skin was closed in layers using 0 Vicryl for the superficial fascial system followed by running 3- 0 Monocryl for the deep dermis in a running subcuticular fashion. Prior to skin closure, two round #19 Burt drains were placed underneath the flap and brought out just inferior to the incision along the pubis. Drain stitch using 2-0 nylon was placed. Once the incision was closed, bulb suction was attached. Hemostasis was checked. At the end of the procedure, the needle, sponge and instrument count was verified correct. The skin was cleansed with hydrogen peroxide. Exofin tape including adhesive was placed along the length of the incision. Optifoam long silver dressing was also placed over the incision and placed over the SIA sites. The patient was then transferred to a hospital bed in a beach chair position. An abdominal binder was placed and marked. The patient was taken to the postanesthesia care unit in stable condition, awake and extubated. Total time for procedure from skin to skin was 94 minutes. The intraoperative findings were discussed with her who was pleased with the level of care.
[2018-06-25] MEDS: fentaNYL (PF) 50 MCG/ML 2 ML AMP IVP ONE ×2 (17:58→18:10)
[2018-06-25] MEDS ORDERED: ONDANSETRON 4 MG/2 ML VIAL IVP ONE (18:06)
[2018-06-25] MEDS: KETOROLAC 30 MG/ML 1 ML VIAL IVP SCH (19:10)
[2018-06-25] MEDS ORDERED: NALOXONE 0.4 MG/ML 1 ML VIAL IV PRN (20:17)
[2018-06-25] MEDS ORDERED: fentaNYL PCA 300 MCG/30 ML SYRINGE IV PRN (20:17)
[2018-06-25] MEDS ORDERED: diphenhydrAMINE 50 MG/ML 1 ML VIAL IVP STA (20:37)
[2018-06-25] MEDS ORDERED: diphenhydrAMINE 50 MG/ML 1 ML VIAL IVP PRN (20:37)
[2018-06-25] MEDS: ACETAMINOPHEN TAB 325 MG TAB PO SCH ×2 (20:58→23:30)
[2018-06-25] MEDS: DEXTROSE 5%-0.9% NACL 1,000 ML IV SCH (20:58)
[2018-06-25] MEDS: ceFAZolin IN SWFI 2 GM/20 ML SYRINGE IVP SCH (23:26)
[2018-06-25] MEDS: hydrOXYzine HCL 10 MG TAB PO SCH (23:31)
[2018-06-25] MEDS ORDERED: KETOROLAC 30 MG/ML 1 ML VIAL IVP STA (23:32)
[2018-06-25] MEDS: ONDANSETRON 4 MG/2 ML VIAL IVP PRN (23:39)
[2018-06-26] MEDS: ACETAMINOPHEN TAB 325 MG TAB PO SCH ×5 (04:53→20:48)
[2018-06-26] MEDS: KETOROLAC 30 MG/ML 1 ML VIAL IVP SCH ×3 (04:53→19:39)
[2018-06-26] MEDS ORDERED: KETOROLAC 30 MG/ML 1 ML VIAL IVP SCH (06:00)
[2018-06-26] MEDS: LACTATED RINGERS 1,000 ML IV SCH (06:19)
[2018-06-26] MEDS: LEVOTHYROXINE 88 MCG TAB PO SCH (06:21)
[2018-06-26] MEDS: PANTOPRAZOLE 40 MG/10 ML VIAL IVP SCH (08:43)
[2018-06-26] MEDS: hydrOXYzine HCL 10 MG TAB PO SCH ×2 (08:50→17:53)
[2018-06-26] MEDS: ceFAZolin IN SWFI 2 GM/20 ML SYRINGE IVP SCH (09:52)
[2018-06-26] MEDS: ONDANSETRON 4 MG/2 ML VIAL IVP PRN ×2 (10:07→17:46)
[2018-06-26] MEDS: DEXTROSE 5%-0.9% NACL 1,000 ML IV SCH (13:16)
--- NOTE | 2018-06-26 14:24 | P.PN ---
<Shanda Weiss M - Last Filed: 06/26/18 14:16> Subjective Progress Note Date: 06/26/18 63-year-old female seen this at bedside continues to report having itching sensation to the bilateral arms and lower back no rash noted abdominal binder in place 2 SIA drains serous drainage noted no labs pending afebrile urinating no difficulty on room air 95% heart rate in the 70s Status post June 25 Panniculectomy, 2.4 pounds. Repair of ventral hernia with 2 SIA drains placed paniculectony weighing 2.5 Objective - Vital Signs Vital signs: Vital Signs Temp 97.7 F 06/26/18 08:59 Pulse 67 06/26/18 08:59 Resp 16 06/26/18 08:59 BP 143/88 06/26/18 08:59 Pulse Ox 95 06/26/18 08:59 Intake & Output 06/25/18 06/26/18 06/26/18 18:59 06:59 18:59 Intake Total 1200 1200 Output Total 200 95 125 Balance 1000 1105 -125 Weight 53.07 kg Intake: IV 1200 Oral 1200 Output: Drainage 95 50 DRAIN B 45 30 drain A 50 20 Emesis 75 Estimated Blood Loss 200 Other: # Voids 1 1 - Exam Physical exam 63-year-old female appears in no acute distress up walking in hallway with standby assist Lungs clear adequate air movement on room air sats 94% Heart S1-S2 audible regular no murmur denying chest pain Abdomen soft nondistended abdominal binder and placed 2 SIA drains surgical tenderness appropriate urinating no difficulty reports no nausea vomiting Extremities Venodyne's on to the bilateral lower extremities Assessment and Plan Assessment: Impression Morbid obesity due to excessive calories now resolved BMI reduced from 39-26 Status post ceig-ao-mkqtoca bypass Chronic abdominal pain Ventral hernia 10 x 15 initial reducible Panniculitis. Panniculectomy, 2.4 pounds Umbilical hernia, initial, reducible Status post Karissa-en-Y gastric bypass. Plan Continue postop surgical care Pain control Increase activity as tolerated Encourage use of incentive spirometer Diet as ordered Do not remove abdominal binder as directed The above impression and plan of care have been discussed and directed by signing physician. Shanad Weiss nurse practitioner acting as scribe for signing physician. <Lara Corea - Last Filed: 06/26/18 20:18> Objective - Vital Signs Vital signs: Vital Signs Temp 99.7 F H 06/26/18 19:25 Pulse 84 06/26/18 19:25 Resp 19 06/26/18 19:25 BP 151/88 06/26/18 19:25 Pulse Ox 91 L 06/26/18 19:25 Intake & Output 06/26/18 06/26/18 06/27/18 06:59 18:59 06:59 Intake Total 1200 Output Total 95 160 Balance 1105 -160 Weight 53.07 kg Intake: Oral 1200 Output: Drainage 95 85 DRAIN B 45 55 drain A 50 30 Emesis 75 Other: # Voids 1 1
[2018-06-26] MEDS ORDERED: DEXAMETHASONE SOD PHOSPHATE 10 MG/ML 1 ML VIAL IV STA (20:19)
--- NOTE | 2018-06-26 20:22 | P.PN ---
Progress Note - Text Progress Note Date: 06/26/18 Patient reports itching and nausea. Will start decadron scheduled. Recommend incentive spirometry. Start [place] with pain under monitoring. Skin flap viable. Abdominal binder re-adjusted.
[2018-06-27] MEDS: DEXAMETHASONE SOD PHOSPHATE 4 MG/ML 1 ML VIAL IV SCH ×2 (00:38→06:17)
[2018-06-27] MEDS: ACETAMINOPHEN TAB 325 MG TAB PO SCH ×3 (00:38→10:30)
[2018-06-27] MEDS: KETOROLAC 30 MG/ML 1 ML VIAL IVP SCH ×2 (00:38→06:17)
[2018-06-27 00:56] VITALS: TEMP 98.1
[2018-06-27] MEDS: HYDROcodone/APAP 7.5-325MG 1 EACH TAB PO PRN ×2 (05:36→12:33)
[2018-06-27] MEDS: LEVOTHYROXINE 88 MCG TAB PO SCH (06:18)
[2018-06-27] MEDS: LACTATED RINGERS 1,000 ML IV SCH (06:29)
[2018-06-27 08:54] VITALS: BP 153/94; PULSE 93; RESP 16
[2018-06-27] MEDS: PANTOPRAZOLE 40 MG/10 ML VIAL IVP SCH (09:11)
--- NOTE | 2018-06-27 11:25 | P.DS ---
Providers Date of admission: 06/25/18 12:56 Expected date of discharge: 06/27/18 Attending physician: Lara Corea Primary care physician: Porsha Jon - Haider Diagnosis(es) (1) Status post panniculectomy Current Visit: Yes Status: Acute (2) Ventral hernia Current Visit: Yes Status: Acute (3) Bariatric surgery status Current Visit: No Status: Chronic Hospital Course: POSTOPERATIVE DIAGNOSES: 1. Morbid obesity due to excess calories, now resolved. 2. Body mass index reduced from 39.1 to 26.2 3. Status post Karissa-en-Y gastric bypass. 4. Epigastric abdominal pain.. 5. History of bowel obstruction. 6. Chronic abdominal pain. 7. Hypertension without cardiomyopathy, resolved. 8. History of antiinflammatory use. 9. Panniculitis. 10. Ventral hernia, 10 x 15 cm, initial and reducible. 11. Umbilical hernia, initial, reducible Leonela Mosley is a 63-year-old female who is status post Karissa-en-Y gastric bypass from March 2014. She is 4 years out. At her height of 4 feet 8 inches, her ideal body weight is 111 pounds. Her highest weight was 174 pounds. Today she comes in weighing 117 pounds from her last weight of 126 pounds 3 months ago. She lost 9 pounds in 3 months. She has maintained 57 pound weight loss. Percent excess weight loss is 91 % . Body mass index is reduced from 39.1 down to 26.2. She comes in with chronic troubles with panniculitis. She has tried local treatment with vaseline and baby powder without improvement of symptoms. She presents for a panniculectomy. Despite medical therapy with prescription powders such as Nystatin over 1 year, she has developed severe medical refractory panniculitis. Benefits and risks of the procedure including bleeding , infection, cosmetic deformity, abdominal seromas, placement of drains, risk of flap failure were described at length. Informed consent was obtained. Postprocedure, she had nausea including itching. Her pain management was adjusted whereby she was able to tolerate oral pain meds. Her nausea and itching had resolved. Patient was stable for discharge. Discharge instructions including restrictions: SIA drains and abdominal binder were reviewed. Procedures: OPERATION: 1. Panniculectomy, 2.4 pounds. 2. Primary repair of ventral hernia 10 x 15 cm without mesh. ANESTHESIA: General ESTIMATED BLOOD LOSS: 200 mL SPECIMENS REMOVED: Pannus 2.4 pounds. COMPLICATIONS: None. CONDITION: Stable. DRAINS: Two #19 Burt drains below abdominal flap extending through the pubis. OPERATIVE FINDINGS: 1. Pannus weighing 2.4 pounds, excised. 2. Abdominal ventral hernia of 10 x 15 cm along the midline repaired primarily using fascial imbrication. Patient Condition at Discharge: Stable Plan - Discharge Summary Discharge Rx Participant: Yes New Discharge Prescriptions: New HYDROcodone/APAP 7.5-325MG [[place] 7.5-325] 1 tab PO Q4H PRN 3 Days #18 tab PRN Reason: Pain Continue Levothyroxine Sodium [Synthroid] 88 mcg PO DAILY Multivitamins, Thera [Multivitamin (formulary)] 1 tab PO DAILY Cyanocobalamin [Vitamin B-12] 2,500 mcg PO DAILY Zinc Gluconate [Zinc] 50 mg PO BID Vitamin A Acetate [Vitamin A] 10,000 unit SL DAILY Cholecalciferol [Vitamin D3] 2,000 unit PO DAILY Discharge Medication List Levothyroxine Sodium [Synthroid] 88 mcg PO DAILY 01/09/17 [History] Multivitamins, Thera [Multivitamin (formulary)] 1 tab PO DAILY 03/14/18 [History ] Cholecalciferol [Vitamin D3] 2,000 unit PO DAILY 06/12/18 [History] Cyanocobalamin [Vitamin B-12] 2,500 mcg PO DAILY 06/12/18 [History] Vitamin A Acetate [Vitamin A] 10,000 unit SL DAILY 06/12/18 [History] Zinc Gluconate [Zinc] 50 mg PO BID 06/12/18 [History] HYDROcodone/APAP 7.5-325MG [[place] 7.5-325] 1 tab PO Q4H PRN 3 Days #18 tab 06/27 [Rx] Follow up Appointment(s)/Referral(s): [facility] [NON-STAFF] - 06/29/18 10:00 am Patient Instructions/Handouts: [place] (GEN), Panniculectomy ( DC) Activity/Diet/Wound Care/Special Instructions: No lifting over 4 pounds in 4 weeks. No bathtub soaks. No shower. No stretching or twisting. Sleep in a recliner. DO NOT REMOVE DRESSINGS. DO NOT REMOVE BINDER. Keep record of SIA outputs daily. Discharge Disposition: HOME SELF-CARE
[2018-06-28] MEDS ORDERED: PANTOPRAZOLE 40 MG TABLET PO SCH (07:30)
== END 2018-06-27 12:56 | disposition home or self-care (01) | DRG 988 ==
LOC: 2ORMAIN 12:56 → 6PED 18:27
PROVIDERS: ADMIT Surgery Plastic and Reconstructive Surgery; ATTEND Surgery Plastic and Reconstructive Surgery
PROC: 0WQF0ZZ Repair Abdominal Wall, Open Approach (ICD-10-PCS; principal; 2018-06-25 14:30)
PROC: 0HB7XZZ Excision of Abdomen Skin, External Approach (ICD-10-PCS; principal; 2018-06-25 14:30)
DX: M79.3 Panniculitis, unspecified (principal); E46 Unspecified protein-calorie malnutrition; E03.9 Hypothyroidism, unspecified; G89.29 Other chronic pain; H91.90 Unspecified hearing loss, unspecified ear; K21.9 Gastro-esophageal reflux disease without esophagitis; K22.70 Barrett's esophagus without dysplasia; K43.9 Ventral hernia without obstruction or gangrene; Z80.9 Family history of malignant neoplasm, unspecified; Z83.3 Family history of diabetes mellitus; Z90.49 Acquired absence of other specified parts of digestive tract; Z98.82 Breast implant status; Z98.84 Bariatric surgery status

== ENCOUNTER → 2018-06-29 | Outpatient (CLI) | payer OTHER ==
--- NOTE | 2018-06-29 10:10 | P.PN ---
Subjective Progress Note Date: 06/29/18 DATE OF SERVICE: 06/29/2018 CHIEF COMPLAINT: Status post panniculectomy HISTORY OF PRESENT ILLNESS: Leonela Mosley is a 62-year-old female who is status post Karissa-en-Y gastric bypass from March 2014. She is now status post panniculectomy 06/25/2018. At her height of 4 feet 8 inches, her ideal body weight is 111 pounds. Her highest weight was 174 pounds. Today she comes in weighing 118 pounds from 116 pounds 3 weeks ago. She has gained 2 pounds in 3 weeks. She has maintained 56 pound weight loss. Percent excess weight loss is 89% . Body mass index is reduced from 39.1 down to 26.5. She is doing very well. No reports of nausea or vomiting. PHYSICAL EXAM: VITAL SIGNS: 4-foot 8, 118 pounds. Body mass index of 26.1 Vital Signs Temp 98.1 F 06/29/18 10:38 Pulse 62 06/29/18 10:38 Resp BP 144/84 06/29/18 10:38 Pulse Ox ABDOMEN: Soft. Cholecystectomy scar present. Flaps are viable. Dressings clean dry and intact. SIA serosanguineous. Abdominal binder present. GENERAL: Well-developed female in no acute distress. HEENT: No scleral icterus. Extraocular movements grossly intact. Moist buccal mucosa. NECK: Supple without lymphadenopathy. CHEST: Non-labored respirations with equal bilateral excursions. CARDIOVASCULAR: Regular rate and rhythm. NEURO: No focal or lateralizing signs. Cranial nerves II through XII grossly within normal limits. PSYCH: Appropriate affect. Alert and oriented to person, place and time. SKIN: No rashes. Well perfused. ASSESSMENT: 1. Morbid obesity due to excess calories, now resolved. 2. Body mass index reduced from 39.1 to 26.1 3. Status post Karissa-en-Y gastric bypass. 4. Panniculitis. 5. Status post panniculectomy PLAN: 1. Follow up 1 week. 2. Dressings changed at bedside.
[2018-06-29 10:45] VITALS: BP 144/84; PULSE 62; TEMP 98.1; BMI 26.4
== END | disposition home or self-care (01) ==
LOC: BARWHC3 09:33
PROVIDERS: ATTEND Surgery Plastic and Reconstructive Surgery
DX: Z48.817 Encounter for surgical aftercare following surgery on the skin and subcutaneous tissue (principal); M79.3 Panniculitis, unspecified; Z98.84 Bariatric surgery status; Z98.890 Other specified postprocedural states
CPT/HCPCS: 99212

== ENCOUNTER → 2018-07-05 | Outpatient (CLI) | payer OTHER ==
[2018-07-05 12:33] VITALS: BP 143/75; PULSE 62; TEMP 98.2; BMI 25.7
--- NOTE | 2018-07-05 17:07 | P.PN ---
Subjective Progress Note Date: 07/05/18 DATE OF SERVICE: 07/05/2018 CHIEF COMPLAINT: Status post panniculectomy HISTORY OF PRESENT ILLNESS: Leonela Mosley is a 62-year-old female who is status post Karissa-en-Y gastric bypass from March 2014. She is now status post panniculectomy 06/25/2018. She is 1 week out. At her height of 4 feet 8 inches, her ideal body weight is 111 pounds. Her highest weight was 174 pounds. Today she comes in weighing 115 pounds from 118 pounds 1 weeks ago. She has lost 3 pounds in 1 week. She has maintained 59 pound weight loss. Percent excess weight loss is 94% . Body mass index is reduced from 39.1 down to 25.8. Her pain is controlled. No reports of nausea and vomiting. She has minimal output of her SIA drain. No fevers or chills. PHYSICAL EXAM: VITAL SIGNS: 4-foot 8, 115 pounds. Body mass index of 25.8 Vital Signs Temp 98.2 F 07/05/18 12:29 Pulse 62 07/05/18 12:29 Resp BP 143/75 07/05/18 12:29 Pulse Ox ABDOMEN: Soft. Flaps are viable. Dressings changed along the pubis. SIA serosanguineous. Abdominal binder present. GENERAL: Well-developed female in no acute distress. HEENT: No scleral icterus. Extraocular movements grossly intact. Moist buccal mucosa. NECK: Supple without lymphadenopathy. CHEST: Non-labored respirations with equal bilateral excursions. CARDIOVASCULAR: Regular rate and rhythm. NEURO: No focal or lateralizing signs. Cranial nerves II through XII grossly within normal limits. PSYCH: Appropriate affect. Alert and oriented to person, place and time. SKIN: No rashes. Well perfused. ASSESSMENT: 1. Morbid obesity due to excess calories, now resolved. 2. Body mass index reduced from 39.1 to 25.8 3. Status post Karissa-en-Y gastric bypass. 4. Panniculitis. 5. Status post panniculectomy PLAN: 1. Remove JPs next week. 2. Continue abdominal binder. Objective - Vital Signs Vital signs: Vital Signs Temp 98.2 F 07/05/18 12:29 Pulse 62 07/05/18 12:29 Resp BP 143/75 07/05/18 12:29 Pulse Ox Intake & Output 07/04/18 07/05/18 07/05/18 18:59 06:59 18:59 Weight 52.163 kg
== END | disposition home or self-care (01) ==
LOC: BARWHC3 11:57
PROVIDERS: ATTEND Surgery Plastic and Reconstructive Surgery
DX: Z48.817 Encounter for surgical aftercare following surgery on the skin and subcutaneous tissue (principal); M79.3 Panniculitis, unspecified; R63.4 Abnormal weight loss; Z98.84 Bariatric surgery status; Z68.25 Body mass index [BMI] 25.0-25.9, adult; Z98.890 Other specified postprocedural states; Z97.8 Presence of other specified devices
CPT/HCPCS: 99212

== ENCOUNTER → 2018-07-18 | Outpatient (CLI) | payer OTHER ==
[2018-07-18 13:37] VITALS: BP 134/62; PULSE 58; RESP 14; TEMP 97.6; BMI 24.2
--- NOTE | 2018-07-18 13:56 | P.PN ---
Subjective Progress Note Date: 07/18/18 DATE OF SERVICE: 07/18/2018 CHIEF COMPLAINT: Status post panniculectomy HISTORY OF PRESENT ILLNESS: Leonela Mosley is a 63-year-old female who is status post Karissa-en-Y gastric bypass from March 2014. She is now status post panniculectomy 06/25/2018. She is 3 weeks out. At her height of 4 feet 8 inches, her ideal body weight is 111 pounds. Her highest weight was 174 pounds. Today she comes in weighing 108 pounds from 114 pounds 1 weeks ago. She has lost 6 pound in 1 week. She has maintained 66 pound weight loss. Percent excess weight loss is 105% . Body mass index is reduced from 39.1 down to 24.2. She notes previous drainage as expected from recent removal of JPs last week. Drainage has almost resolved. She has lost 10 pounds in 3 weeks since surgery. PHYSICAL EXAM: VITAL SIGNS: 4-foot 8, 108 pounds. Body mass index of 24.2 Vital Signs Temp 97.6 F 07/18/18 13:26 Pulse 58 L 07/18/18 13:26 Resp 14 07/18/18 13:26 BP 134/62 07/18/18 13:26 Pulse Ox ABDOMEN: No signs of infection. Pin-point drainage clear at left lower abdominal incision. Binder re-positioned. No cellulitis. No signs of wound dehiscence. GENERAL: Well-developed female in no acute distress. HEENT: No scleral icterus. Extraocular movements grossly intact. Moist buccal mucosa. NECK: Supple without lymphadenopathy. CHEST: Non-labored respirations with equal bilateral excursions. CARDIOVASCULAR: Regular rate and rhythm. NEURO: No focal or lateralizing signs. Cranial nerves II through XII grossly within normal limits. PSYCH: Appropriate affect. Alert and oriented to person, place and time. SKIN: No rashes. Well perfused. ASSESSMENT: 1. Morbid obesity due to excess calories, now resolved. 2. Body mass index reduced from 39.1 to 24.2 3. Status post Karissa-en-Y gastric bypass. 4. Panniculitis. 5. Status post panniculectomy PLAN: 1. Continue wearing binder at all times 2. Pain prescription written as expected 3. Follow-up in 3 weeks. Objective - Vital Signs Vital signs: Vital Signs Temp 97.6 F 07/18/18 13:26 Pulse 58 L 07/18/18 13:26 Resp 14 07/18/18 13:26 BP 134/62 07/18/18 13:26 Pulse Ox Intake & Output 07/17/18 07/18/18 07/18/18 18:59 06:59 18:59 Weight 48.988 kg
== END | disposition home or self-care (01) ==
LOC: BARWHC3 12:58
PROVIDERS: ATTEND Surgery Plastic and Reconstructive Surgery
DX: Z48.817 Encounter for surgical aftercare following surgery on the skin and subcutaneous tissue (principal); R63.4 Abnormal weight loss; M79.3 Panniculitis, unspecified; Z68.24 Body mass index [BMI] 24.0-24.9, adult; Z98.84 Bariatric surgery status; Z98.890 Other specified postprocedural states
CPT/HCPCS: 99212

== ENCOUNTER 2018-07-21 22:28 | Emergency (ER) | payer OTHER ==
[2018-07-21] MEDS ORDERED: SODIUM CHLORIDE 0.9% 1,000 ML IV ONE (23:06)
[2018-07-21] MEDS ORDERED: ONDANSETRON 4 MG/2 ML VIAL IVP STA (23:06)
[2018-07-21] MEDS ORDERED: HYDROmorphone 1 MG/ML 1 ML SYRINGE IVP STA (23:07)
[2018-07-21 23:36] LABS: Basophils % (A) 0 %; Eosinophils # (A) 0.2 k/uL (0-0.7); Eosinophils % (A) 3 %; HCT 37.5 % (34.0-46.0); HGB 11.9 gm/dL (11.4-16.0); Lymphocytes % (A) 15 %; MCH 30.1 pg (25.0-35.0); MCHC 31.8 g/dL (31.0-37.0); MCV 94.5 fL (80.0-100.0); Mean Platelet Volume 7.3; Monocytes # (A) 0.4 k/uL (0-1.0); Monocytes % (A) 6 %; Neutrophils # (A) 4.7 k/uL (1.3-7.7); Neutrophils % (A) 74 %; Platelet Count 265 k/uL (150-450); RBC 3.97 m/uL (3.80-5.40); RDW 12.9 % (11.5-15.5); WBC 6.3 k/uL (3.8-10.6)
[2018-07-21 23:45] LABS: Partial Thromboplastin Time 26.7 sec (22.0-30.0); Prothrombin Time 9.6 sec (9.0-12.0)
[2018-07-21 23:50] LABS: ALT 18 U/L (9-52); AST 24 U/L (14-36); Albumin 3.5 g/dL (3.5-5.0); Alkaline Phosphatase 85 U/L (38-126); Anion Gap 8 mmol/L; Blood Urea Nitrogen 16 mg/dL (7-17); Calcium 8.7 mg/dL (8.4-10.2); Carbon Dioxide 26 mmol/L (22-30); Chloride 105 mmol/L (98-107); Glucose 100 mg/dL (74-99); Potassium 3.5 mmol/L (3.5-5.1); Sodium 139 mmol/L (137-145); Total Bilirubin 0.4 mg/dL (0.2-1.3); Total Protein 6.7 g/dL (6.3-8.2)
--- NOTE | 2018-07-22 00:51 | ED ---
Skin/Abscess/FB HPI - General Source: patient Mode of arrival: wheelchair Limitations: no limitations <Elizabet Wesley - Last Filed: 07/22/18 03:48> <Astrid Santo - Last Filed: 07/24/18 01:03> - General Chief complaint: Skin/Abscess/Foreign Body Stated complaint: Rash Time Seen by Provider: 07/21/18 22:50 - History of Present Illness Initial comments: 63-year-old female patient presents to the emergency department this evening for evaluation of joint pain and rash to her lower extremities. Patient states that she started having pain and swelling to her ankles and wrists this morning. Patient states that as the day wore on the pain became worse and made it difficult for her to walk. Patient states that this evening she developed a red rash to her legs. Patient denies any pain or itching with the lesions. Patient states that she does have a history of rheumatoid arthritis, has not had her Remicade injection since before June 25. On June 25 patient did have a panniculectomy with Dr. Corea, and has been recovering well from this. Patient denies any fevers or chills. Denies any nausea or vomiting. Patient states she has been taking Media since after her surgery but denies any other new medications. Denies any use of anticoagulant medication. Patient denies any recent shortness breath, chest pain, abdominal pain, diarrhea, constipation, back pain, numbness, tingling, dizziness, weakness, hematuria, dysuria, urinary urgency, urinary frequency, headache, visual changes, or any other complaints. (Elizabet Wesley) - Related Data Home Medications Medication Instructions Recorded Confirmed Levothyroxine Sodium [Synthroid] 88 mcg PO DAILY 01/09/17 07/18/18 Multivitamins, Thera [Multivitamin 1 tab PO DAILY 03/14/18 07/18/18 (formulary)] Cholecalciferol [Vitamin D3] 2,000 unit PO DAILY 06/12/18 07/18/18 Cyanocobalamin [Vitamin B-12] 2,500 mcg PO DAILY 06/12/18 07/18/18 Vitamin A Acetate [Vitamin A] 10,000 unit SL DAILY 06/12/18 07/18/18 Zinc Gluconate [Zinc] 50 mg PO BID 06/12/18 07/18/18 Previous Rx's Medication Instructions Recorded HYDROcodone/APAP 7.5-325MG [Media 1 tab PO Q4H PRN 3 Days #18 tab 07/18/18 7.5-325] Ibuprofen [Motrin] 600 mg PO Q8HR PRN #30 tab 07/22/18 Allergies Allergy/AdvReac Type Severity Reaction Status Date / Time morphine AdvReac Rapid Verified 07/21/18 22:37 Heart Rate Review of Systems ROS Other: All systems not noted in ROS Statement are negative. <Elizabet Wesley - Last Filed: 07/22/18 03:48> ROS Other: All systems not noted in ROS Statement are negative. <Astrid Santo - Last Filed: 07/24/18 01:03> ROS Statement: Those systems with pertinent positive or pertinent negative responses have been documented in the HPI. Past Medical History Past Medical History: GERD/Reflux, Hearing Disorder / Deafness, Osteoarthritis ( OA), Thyroid Disorder Additional Past Medical History / Comment(s): barretts disease,polyps found during colonoscopy, [place] left ear is worse, lt hip pain steroid injection 1 month ago, lower back pain , gastrojejunal stricture History of Any Multi-Drug Resistant Organisms: None Reported Past Surgical History: Bariatric Surgery, Cholecystectomy Additional Past Surgical History / Comment(s): lasik eye surgery and breast implants, lazarus-en-y gastric bypass of 03/03/2014, EGD w/dilatation on 03/28/14, 2015 abdominal bariatric surgery. Tummy tuck done June 25 Past Anesthesia/Blood Transfusion Reactions: No Reported Reaction Past Psychological History: No Psychological Hx Reported Smoking Status: Never smoker Past Alcohol Use History: None Reported Past Drug Use History: None Reported - Past Family History Father Family Medical History: Cancer, Prostate Disorder Additional Family Medical History / Comment(s): Father from prostate cancer with history of TB Mother Family Medical History: Cancer, Diabetes Mellitus Additional Family Medical History / Comment(s): Mother from cancer that was through her whole body at the time of diagnosis. Brother(s) Additional Family Medical History / Comment(s): Patient has a total of 16 brothers and sisters. Daughter(s) Family Medical History: No Reported History Additional Family Medical History / Comment(s): Patient has a total of 5 children with no major medical problems. <Elizabet Wesley M - Last Filed: 07/22/18 03:48> General Exam Limitations: no limitations General appearance: alert, in no apparent distress, other (This is a well- developed, well-nourished adult female patient in no acute distress. Vital signs upon presentation are temperature 99.6F, pulse 88, respirations 18, blood pressure 128/81, pulse ox 95% on room air.) Eye exam: Present: normal appearance, PERRL, EOMI. Absent: scleral icterus, conjunctival injection, periorbital swelling ENT exam: Present: normal exam, normal oropharynx, mucous membranes moist Respiratory exam: Present: normal lung sounds bilaterally. Absent: respiratory distress, wheezes, rales, rhonchi, stridor Cardiovascular Exam: Present: regular rate, normal rhythm, normal heart sounds. Absent: systolic murmur, diastolic murmur, rubs, gallop, clicks GI/Abdominal exam: Present: soft, normal bowel sounds. Absent: distended, tenderness, guarding, rebound, rigid Extremities exam: Present: full ROM, normal capillary refill, other (Patient has mild, nonpitting edema to the bilateral ankles and wrists. Joints are not warm or erythematous. Patient has a palpable purpuric rash to the bilateral lower extremities extending from the ankles up to the thighs. Lesions are non- vesicular. No surrounding erythema.). Absent: normal inspection, tenderness, pedal edema, joint swelling, calf tenderness Neurological exam: Present: alert, oriented X3, CN II-XII intact Psychiatric exam: Present: normal affect, normal mood Skin exam: Present: warm, dry, intact, normal color. Absent: rash <Elizabet Wesley M - Last Filed: 07/22/18 03:48> Vital Signs 07/21/18 07/22/18 07/22/18 22:34 01:39 03:30 Temperature 99.6 F 98.7 F 97.8 F Pulse Rate 88 60 69 Respiratory 18 16 18 Rate Blood Pressure 128/81 129/74 122/96 O2 Sat by Pulse 95 98 99 Oximetry Medical Decision Making - Lab Data Result diagrams: 07/21/18 23:22 07/21/18 23:22 <Elizabet Wesley M - Last Filed: 07/22/18 03:48> - Lab Data Result diagrams: 07/21/18 23:22 07/21/18 23:22 <Astrid Santo - Last Filed: 07/24/18 01:03> - Medical Decision Making 63-year-old female patient presents to the emergency department today for evaluation of joint pain and rash to her legs. Physical examination did reveal a palpable purpuric rash to the bilateral lower extremities. Lesions are nonpainful, nonpruritic. Labs reviewed and were unremarkable. Patient's coagulation studies and CBC were within normal limits. Patient's platelet count was normal. Patient was afebrile, vital signs are stable. Patient did have improvement of her joint pain, though not completely resolved after receiving pain medication here in the emergency department. I did discuss results and findings with the patient. 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 Patient will be discharged home at this time to follow-up with her primary care physician on Monday. She is instructed to have repeat kidney function testing performed. Return parameters were discussed in detail. She verbalizes understanding and agreed with this plan. (Elizabet Wesley) I was available for consultation in the emergency department. The history and physical exam were done by the midlevel provider. I was consulted for this patient's care. I reviewed the case with the midlevel provider and based on their presentation of the patient, I agree with the assessment, medical decision making and plan of care as documented. (Astrid Santo) - Lab Data Lab Results 07/21/18 07/21/18 07/21/18 Range/Units 23:22 23:22 23:22 WBC 6.3 (3.8-10.6) k/uL RBC 3.97 (3.80-5.40) m/uL Hgb 11.9 (11.4-16.0) gm/dL Hct 37.5 (34.0-46.0) % MCV 94.5 (80.0-100.0) fL MCH 30.1 (25.0-35.0) pg MCHC 31.8 (31.0-37.0) g/dL RDW 12.9 (11.5-15.5) % Plt Count 265 (150-450) k/uL Neutrophils % 74 % Lymphocytes % 15 % Monocytes % 6 % Eosinophils % 3 % Basophils % 0 % Neutrophils # 4.7 (1.3-7.7) k/uL Lymphocytes # 1.0 (1.0-4.8) k/uL Monocytes # 0.4 (0-1.0) k/uL Eosinophils # 0.2 (0-0.7) k/uL Basophils # 0.0 (0-0.2) k/uL PT (9.0-12.0) sec INR (<1.2) APTT (22.0-30.0) sec Sodium 139 (137-145) mmol/L Potassium 3.5 (3.5-5.1) mmol/L Chloride 105 (98-107) mmol/L Carbon Dioxide 26 (22-30) mmol/L Anion Gap 8 mmol/L BUN 16 (7-17) mg/dL Creatinine 0.54 (0.52-1.04) mg/dL Est GFR (CKD-EPI)AfAm >90 (>60 ml/min/1.73 sqM) Est GFR (CKD-EPI)NonAf >90 (>60 ml/min/1.73 sqM) Glucose 100 H (74-99) mg/dL Plasma Lactic Acid Baldev 0.8 (0.7-2.0) mmol/L Calcium 8.7 (8.4-10.2) mg/dL Total Bilirubin 0.4 (0.2-1.3) mg/dL AST 24 (14-36) U/L ALT 18 (9-52) U/L Alkaline Phosphatase 85 (38-126) U/L Total Protein 6.7 (6.3-8.2) g/dL Albumin 3.5 (3.5-5.0) g/dL 07/21/18 Range/Units 23:22 WBC (3.8-10.6) k/uL RBC (3.80-5.40) m/uL Hgb (11.4-16.0) gm/dL Hct (34.0-46.0) % MCV (80.0-100.0) fL MCH (25.0-35.0) pg MCHC (31.0-37.0) g/dL RDW (11.5-15.5) % Plt Count (150-450) k/uL Neutrophils % % Lymphocytes % % Monocytes % % Eosinophils % % Basophils % % Neutrophils # (1.3-7.7) k/uL Lymphocytes # (1.0-4.8) k/uL Monocytes # (0-1.0) k/uL Eosinophils # (0-0.7) k/uL Basophils # (0-0.2) k/uL PT 9.6 (9.0-12.0) sec INR 1.0 (<1.2) APTT 26.7 (22.0-30.0) sec Sodium (137-145) mmol/L Potassium (3.5-5.1) mmol/L Chloride (98-107) mmol/L Carbon Dioxide (22-30) mmol/L Anion Gap mmol/L BUN (7-17) mg/dL Creatinine (0.52-1.04) mg/dL Est GFR (CKD-EPI)AfAm (>60 ml/min/1.73 sqM) Est GFR (CKD-EPI)NonAf (>60 ml/min/1.73 sqM) Glucose (74-99) mg/dL Plasma Lactic Acid Baldev (0.7-2.0) mmol/L Calcium (8.4-10.2) mg/dL Total Bilirubin (0.2-1.3) mg/dL AST (14-36) U/L ALT (9-52) U/L Alkaline Phosphatase (38-126) U/L Total Protein (6.3-8.2) g/dL Albumin (3.5-5.0) g/dL Disposition Is patient prescribed a controlled substance at d/c from ED?: No Time of Disposition: 00:51 <Elizabet Wesley - Last Filed: 07/22/18 03:48> <Astrid Santo - Last Filed: 07/24/18 01:03> Clinical Impression: Henoch Schonlein syndrome Disposition: HOME SELF-CARE Condition: Good Instructions: Henoch-Schonlein Purpura (ED) Additional Instructions: Increase fluids. Continue all medications as directed. Follow-up with your primary care physician for recheck on Monday. Return here immediately for any new, worsening, or concerning symptoms. Prescriptions: Ibuprofen [Motrin] 600 mg PO Q8HR PRN #30 tab PRN Reason: Pain Referrals: Porsha Jon MD [Primary Care Provider] - 1-2 days
[2018-07-22] MEDS ORDERED: KETOROLAC 30 MG/ML 1 ML VIAL IVP STA (01:33)
[2018-07-22 04:03] VITALS: BP 122/96; PULSE 69; RESP 18; TEMP 97.8
== END 2018-07-22 03:30 | disposition home or self-care (01) ==
LOC: EC 22:28
DX: D69.0 Allergic purpura (principal); Z98.84 Bariatric surgery status; Z90.49 Acquired absence of other specified parts of digestive tract; Z79.899 Other long term (current) drug therapy; Z88.5 Allergy status to narcotic agent
CPT/HCPCS: 36415; 80053; 83605; 85025; 85610; 85730; 87040; 99283; 96374; 96375 ×2; 96361; J2405; J1885; J1170

== ENCOUNTER → 2018-08-08 | Outpatient (CLI) | payer OTHER ==
[2018-08-08 16:34] VITALS: BP 137/84; PULSE 16; RESP 16; TEMP 98.4; BMI 24.8
--- NOTE | 2018-08-08 17:20 | P.PN ---
Subjective Progress Note Date: 08/08/18 HPI: She reports swelling along the lower abdomen from her previous panniculectomy and pain. ABDOMEN: Palpable abdominal wall seroma PLAN: 1. Abdominal binder or MARTIN wrap advised 2. Radiology guided US of the abdomen aspiration of seroma recommend Objective - Vital Signs Vital signs: Vital Signs Temp 98.4 F 08/08/18 16:31 Pulse 16 L 08/08/18 16:31 Resp 16 08/08/18 16:31 BP 137/84 08/08/18 16:31 Pulse Ox Intake & Output 08/07/18 08/08/18 08/08/18 18:59 06:59 18:59 Weight 50.349 kg
== END | disposition home or self-care (01) ==
LOC: BARWHC3 14:48
PROVIDERS: ATTEND Surgery Plastic and Reconstructive Surgery
DX: L76.82 Other postprocedural complications of skin and subcutaneous tissue (principal); R10.9 Unspecified abdominal pain; Z98.890 Other specified postprocedural states
CPT/HCPCS: 99211

== ENCOUNTER 2018-08-31 12:30 | Day surgery (SDC) | payer OTHER ==
[2018-08-31] MEDS ORDERED: ALPRAZolam 0.5 MG TAB PO STA (13:07)
[2018-08-31 13:51] VITALS: BP 124/70; PULSE 74; RESP 16; TEMP 98
--- NOTE | 2018-08-31 16:09 | US ---
Discontinued seroma drainage HISTORY: Abdominal pain, postop seroma No images submitted for correlation. Real-time ultrasound performed. 30 images obtained. A discrete fluid collection is not identified at the site of patient's surgery, symptomatology. IMPRESSION: There is no seroma evident. No aspiration performed at this time.
== END 2018-08-31 14:10 | disposition home or self-care (01) ==
LOC: RADPROMAIN 12:30
PROVIDERS: ATTEND Surgery Plastic and Reconstructive Surgery
DX: L76.34 Postprocedural seroma of skin and subcutaneous tissue following other procedure (principal); Z53.8 Procedure and treatment not carried out for other reasons
CPT/HCPCS: 76536

== ENCOUNTER → 2019-02-08 | Outpatient (CLI) | payer OTHER ==
--- NOTE | 2019-02-08 19:13 | US ---
EXAMINATION TYPE: US transvaginal DATE OF EXAM: 02/08/2019 COMPARISON: NONE CLINICAL HISTORY: N83.201 OVARIAN CYST OF RT SIDE. Right ovarian cyst visualized on recent CT of hip TECHNIQUE: Transvaginal (TV). Date of LMP: 6 years ago EXAM MEASUREMENTS: Uterus: 6.0 x 3.3 x 5.0 cm Endometrial Stripe: 0.3 cm Right Ovary: unable to visualize Left Ovary: unable to visualize 1. Uterus: Retroverted heterogeneous 2. Endometrium: appears wnl 3. Right Ovary: Obscured by overlying bowel gas 4. Left Ovary: Obscured by overlying bowel gas 5. Bilateral Adnexa: appears wnl 6. Posterior cul-de-sac: wnl IMPRESSION: Exam is limited. Ovaries are not visualized.
== END | disposition home or self-care (01) ==
LOC: RADUSWWP 14:01
PROVIDERS: ATTEND Family Medicine
DX: N83.201 Unspecified ovarian cyst, right side (principal)
CPT/HCPCS: 76830

== ENCOUNTER → 2019-03-13 | Outpatient (CLI) | payer OTHER ==
--- NOTE | 2019-03-13 17:21 | P.PN ---
Subjective Progress Note Date: 03/13/19 HPI: She is doing very well. She gets dumping from eating sweet fruits. No abdominal pain. No GERD. ABDOMEN: Abdomen looks great ASSESSMENT: 1. Morbid obesity PLAN: 1. Labs 2. Dietary surveillance. 3. Alive MVI
[2019-03-13 17:54] LABS: HCT 37.3 % (34.0-46.0); HGB 12.2 gm/dL (11.4-16.0); Hypochromasia Slight; MCH 28.5 pg (25.0-35.0); MCHC 32.7 g/dL (31.0-37.0); MCV 87.3 fL (80.0-100.0); Mean Platelet Volume 8.5; Platelet Count 192 k/uL (150-450); RBC 4.27 m/uL (3.80-5.40); WBC 4.4 k/uL (3.8-10.6)
[2019-03-13 17:59] LABS: INR 0.9 (<1.2); Partial Thromboplastin Time 25.2 sec (22.0-30.0); Prothrombin Time 9.5 sec (9.0-12.0)
[2019-03-13 18:24] VITALS: BP 124/75; PULSE 89; TEMP 98; BMI 26.9
[2019-03-14 02:25] LABS: Parathyroid Hormone Intact 58.4 pg/mL (14.0-72.0)
[2019-03-14 02:54] LABS: Vitamin D 25 Hydroxy 28.3 ng/mL (30.0-100.0)
[2019-03-14 03:04] LABS: Folate, Serum 18.5 ng/mL; Iron Saturation 5.19 (12.00-45.00)
[2019-03-14 03:34] LABS: African American GFR (CKD) 108.4 (60.0-200.0); Albumin 4.5 g/dL (3.80-4.90); Albumin/Globulin Ratio 2.05 (1.60-3.17); BUN/Creat Ratio 18.57 Ratio (12.00-20.00); Globulin 2.2 g/dL (1.6-3.3); Phosphorus 4.6 mg/dL (2.4-5.1); Potassium 3.9 mmol/L (3.5-5.5); Total Bilirubin 0.2 mg/dL (0.3-1.2); Total Protein 6.7 g/dL (6.2-8.2)
[2019-03-14 03:35] LABS: LDL Cholesterol,Calculated 51.4 mg/dL (0.0-131.0); Magnesium 2.1 mg/dL (1.5-2.4); VLDL Calculation 37.6 mg/dL (5.00-40.00)
[2019-03-14 04:37] LABS: Hemoglobin A1C 5.8 % (4.0-6.0)
[2019-03-14 15:14] LABS: Zinc, Serum 52 ug/dL (60-130)
[2019-03-15 06:43] LABS: Vit B1(Thiamine) 65 ug/L (38-122)
[2019-03-16 19:29] LABS: Selenium 127 mcg/L (63-160)
[2019-03-18 08:31] LABS: Vitamin A 44 ug/dL (38-106)
== END | disposition home or self-care (01) ==
LOC: BARWHC3 14:57
PROVIDERS: ATTEND Surgery Plastic and Reconstructive Surgery
DX: E66.01 Morbid (severe) obesity due to excess calories (principal); E21.1 Secondary hyperparathyroidism, not elsewhere classified; E89.1 Postprocedural hypoinsulinemia; D50.9 Iron deficiency anemia, unspecified; K90.9 Intestinal malabsorption, unspecified; E55.9 Vitamin D deficiency, unspecified; K76.9 Liver disease, unspecified; N19 Unspecified kidney failure; K50.90 Crohn's disease, unspecified, without complications; Z68.26 Body mass index [BMI] 26.0-26.9, adult
CPT/HCPCS: 36415; 80053; 80061; 82306; 82525; 82607; 82728; 82746; 83036; 83540; 83550; 83735; 83970; 84100; 84134; 84255; 84425; 84443; 84590; 84630; 85027; 85610; 85730; 99211